=== PATIENT | female | born 1975 | race Caucasian/White ===

== ENCOUNTER 2018-06-26 08:35 | Emergency (ER) | payer BC ==
[~2018-06-26] VITALS: Ht 142.2 cm; Wt 117.0 kg
[2018-06-26 08:39] VITALS: BP 178/84
--- NOTE | 2018-06-26 08:57 | PHYS DOC ---
Past Medical History Past Medical History: No Pertinent History Past Surgical History: No Surgical History Alcohol Use: None Drug Use: None Adult General Chief Complaint Chief Complaint: SORE THROAT HPI HPI Patient is a 42 year old female with no significant medical history who presents to the ED today complaining of a dry cough, nasal congestion and sore throat for one week. Patient denies any fever. Patient is Hungarian-speaking and family is interpreting. Review of Systems Review of Systems Constitutional: Denies fever or chills [] Eyes: Denies change in visual acuity, redness, or eye pain [] HENT: Reports sore throat, and nasal congestion Respiratory: Reports cough, denies shortness of breath [] Cardiovascular: No additional information not addressed in HPI [] GI: Denies abdominal pain, nausea, vomiting, bloody stools or diarrhea [] : Denies dysuria or hematuria [] Musculoskeletal: Denies back pain or joint pain [] Integument: Denies rash or skin lesions [] Neurologic: Denies headache, focal weakness or sensory changes [] All other systems were reviewed and found to be within normal limits, except as documented in this note. Allergies Allergies Allergies Coded Allergies Type Severity Reaction Last Updated Verified No Known Drug Allergies 06/24/15 No Physical Exam Physical Exam Constitutional: Well developed, well nourished, no acute distress, non-toxic appearance. [] HENT: Normocephalic, atraumatic, bilateral external ears normal, oropharynx moist, no oral exudates, nose normal. [] posterior pharynx with mild erythema no exudate Eyes: PERRLA, EOMI, conjunctiva normal, no discharge. [] Neck: Normal range of motion, no tenderness, supple, no stridor. [] Cardiovascular:Heart rate regular rhythm, no murmur [] Lungs & Thorax: Bilateral breath sounds clear to auscultation [] Abdomen: Bowel sounds normal, soft, no tenderness, no masses, no pulsatile masses. [] Skin: Warm, dry, no erythema, no rash. [] Back: No tenderness, no CVA tenderness. [] Extremities: No tenderness, no cyanosis, no clubbing, ROM intact, no edema. [] Neurologic: Alert and oriented X 3, normal motor function, normal sensory function, no focal deficits noted. [] Psychologic: Affect normal, judgement normal, mood normal. [] Current Patient Data Vital Signs Vital Signs Date Time Temp Pulse Resp B/P (MAP) Pulse Ox O2 Delivery O2 Flow Rate FiO2 06/26/18 08:39 98.6 84 16 178/84 (115) 98 Room Air 98.6 EKG EKG [] Radiology/Procedures Radiology/Procedures []PROCEDURE: CHEST PA & LATERAL PA and lateral views of the chest. Comparison: None. Indication: DRY COUGH, SORE THROAT, PAIN ON RIGHT SIDE OF NECK Findings: Normal lung volume. No focal airspace disease. Normal pulmonary vasculature. No pleural effusion. No pneumothorax. The cardiomediastinal silhouette is normal in appearance. The great vessels are normal. No acute osseous abnormality. Impression: 1. No acute cardiopulmonary process. Electronically signed by: Naresh Cunningham MD (06/26/2018 9:22 AM) [facility] DICTATED and SIGNED BY: NARESH CUNNINGHAM MD DATE: 06/26/18 0922 Course & Med Decision Making Course & Med Decision Making Pertinent Labs and Imaging studies reviewed. (See chart for details) This is a 42-year-old female patient presenting to the ED today complaining of a sore throat, nasal congestion and a dry cough for 1 week. Chest x-ray interpreted by radiologist as negative for any acute findings. Chest x-ray interpreted by radiologist as negative for any acute findings, negative rapid strep. Treated for viral bronchitis and viral pharyngitis, discharged with instructions to follow-up with the PCP in 1-2 weeks. Patient is Hungarian-speaking, interpretation provided by family [place] Disclaimer Ellis Disclaimer This electronic medical record was generated, in whole or in part, using a voice recognition dictation system. Departure Departure Impression: Primary Impression: Acute viral pharyngitis Additional Impression: Acute viral bronchitis Disposition: 01 HOME, SELF-CARE Condition: STABLE Referrals: ASHLEY CARRERA DO (PCP) follow up in 1-2 weeks with your doctor Patient Instructions: Acute Bronchitis, Viral Pharyngitis Additional Instructions: You were evaluated in the emergency room and diagnosed with bronchitis and pharyngitis. We put you on medications, take them as prescribed. Follow-up with your doctor in 1-2 weeks. Scripts Albuterol Sulfate (VENTOLIN HFA INHALER) 18 Gm Hfa.aer.ad 2 PUFF INH Q4HRS for FOR ASTHMA, #1 INHALER 0 Refills Prov: FRANKO RICHARD APRN 06/26/18 Benzonatate (TESSALON PERLE) 100 Mg Capsule 1 CAP PO TID, #30 CAP Prov: FRANKO RICHARD APRN 06/26/18 Prednisone (PREDNISONE) 50 Mg Tablet 1 TAB PO DAILY, #5 TAB Prov: FRANKO RICHARD APRN 06/26/18 Problem Qualifiers FRANKO RICHARD APRN Jun 26, 2018 08:57
--- NOTE | 2018-06-26 09:25 | RAD ---
PA and lateral views of the chest. Comparison: None. Indication: DRY COUGH, SORE THROAT, PAIN ON RIGHT SIDE OF NECK Findings: Normal lung volume. No focal airspace disease. Normal pulmonary vasculature. No pleural effusion. No pneumothorax. The cardiomediastinal silhouette is normal in appearance. The great vessels are normal. No acute osseous abnormality. Impression: 1. No acute cardiopulmonary process. Electronically signed by: Naresh Cunningham MD (06/26/2018 9:22 AM) [facility]
[2018-06-26] MEDS ORDERED: BENZ100C PO (09:42)
[2018-06-26] MEDS ORDERED: VENTOLIN HFA18 GM INH (09:42)
[2018-06-26] MEDS ORDERED: PRED50TA PO (09:42)
== END 2018-06-26 10:12 | disposition home or self-care (01) ==
LOC: ER 08:35
DX: J02.8 Acute pharyngitis due to other specified organisms (principal); J20.8 Acute bronchitis due to other specified organisms; B97.89 Other viral agents as the cause of diseases classified elsewhere
CPT/HCPCS: 71046; 87070; 87880; 99284-25

== ENCOUNTER 2018-11-07 01:43 | Emergency (ER) | payer BC ==
[~2018-11-07] VITALS: Ht 142.2 cm; Wt 113.4 kg
[~2018-11-07 01:43] MED LIST: BENZ100C PO; NAPR-683 PO; PRED50TA PO; VENTOLIN HFA18 GM INH
[2018-11-07] MEDS ORDERED: LIDO:MAALOX 1:1 20 ML SINGLE DOSE. SWSW ONE (02:30)
[2018-11-07] MEDS ORDERED: FAMOTIDINE 20 MG TABLET. PO ONE (02:30)
[2018-11-07] MEDS ORDERED: ONDANSETRON ODT 4 MG TAB.RAPDIS. PO ONE (02:30)
[2018-11-07] MEDS ORDERED: MAG355OR11 PO (02:38)
[2018-11-07] MEDS ORDERED: ONDA4TAB7 PO (02:38)
[2018-11-07] MEDS ORDERED: FAMO-63 PO (02:38)
--- NOTE | 2018-11-07 02:39 | PHYS DOC ---
Past Medical History Past Medical History: Asthma, GERD Past Surgical History: Appendectomy, Other Additional Past Surgical Histo: Pt. poor historian, reports having gallbladder out, unsure of appendix Alcohol Use: None Drug Use: None Adult General Chief Complaint Chief Complaint: ABDOMINAL PAIN HPI HPI Patient is a 42 year old male with history of reflux disease who presents with epigastric pain rating to left chest starting this evening after eating spicy [place] food. Patient reports nausea, no vomiting. Pain is worse while supine and with palpation. Denies exertional. Similar episodes in the past treated with antacids recently given in the ED. However, the patient is not currently taking any antacids. Denies shortness of breath, bloody stools dark tarry stools. No history of peptic ulcer disease. No other acute symptoms or complaints. [] Review of Systems Review of Systems Review of symptoms as per history of present illness. All other review symptoms are negative All other systems were reviewed and found to be within normal limits, except as documented in this note. Current Medications Current Medications Current Medications Medications (Trade) Dose Ordered Sig/Marlo Start Time Stop Time Status Last Admin Dose Admin Famotidine (Pepcid) 20 mg 1X ONCE 11/07/18 02:30 11/07/18 02:31 11/07/18 02:16 20 MG Multi-Ingredient Mouthwash/Gargle (Gi Cocktail) 20 ml 1X ONCE 11/07/18 02:30 11/07/18 02:31 11/07/18 02:16 20 ML Ondansetron HCl (Zofran Odt) 4 mg 1X ONCE 11/07/18 02:30 11/07/18 02:31 11/07/18 02:16 4 MG Allergies Allergies Allergies Coded Allergies Type Severity Reaction Last Updated Verified No Known Drug Allergies 06/24/15 No Physical Exam Physical Exam Constitutional: Well developed, anxious, moderate distress secondary to pain.. [] HENT: Normocephalic, atraumatic, bilateral external ears normal, oropharynx moist, nose normal. [] Eyes: PERRLA, EOMI, conjunctiva normal, no discharge. [] Neck: Normal range of motion, no tenderness, supple, no stridor. [] Cardiovascular:Heart rate regular rhythm, no murmur [] Lungs & Thorax: Bilateral breath sounds clear to auscultation [] Abdomen: Bowel sounds normal, soft, epigastric pain, tenderness. [] Skin: Warm, dry, no erythema, no rash. [] Back: No tenderness, no CVA tenderness. [] Extremities: No tenderness, no cyanosis, no clubbing, ROM intact, no edema. [] Neurologic: Alert and oriented X 3, normal motor function, normal sensory function, no focal deficits noted. [] Psychologic: Affect normal, judgement normal, mood normal. [] Current Patient Data Vital Signs Vital Signs Date Time Temp Pulse Resp B/P (MAP) Pulse Ox O2 Delivery O2 Flow Rate FiO2 11/07/18 01:43 98.2 94 18 187/101 (129) 98 Room Air 98.2 EKG EKG [EKG: Normal sinus rhythm, no acute ST-T wave changes] Radiology/Procedures Radiology/Procedures [Chest x-ray: NAD] Course & Med Decision Making Course & Med Decision Making Pertinent Labs and Imaging studies reviewed. (See chart for details) [Symptoms fully resolved with GI cocktail Pepcid and Zofran. Recommend avoiding spicy foods, alcohol etc.., supportive care and close PCP follow up.] Dragon Disclaimer Dragon Disclaimer This electronic medical record was generated, in whole or in part, using a voice recognition dictation system. Departure Departure Impression: Primary Impression: GERD with esophagitis Disposition: HOME, SELF-CARE Condition: IMPROVED Referrals: ASHLEY CARRERA DO (PCP) Patient Instructions: Esophageal Spasm, Heartburn Additional Instructions: Please avoid space foods, alcohol and eating prior to bedtime. Take newly prescribed medications as directed and follow-up with your local PCP for reevaluation. Scripts Mag Hydrox/Aluminum Hyd/Simeth (Maalox Advanced Suspension) 355 Ml Oral.susp 355 ML PO Q8HRS PRN for HEARTBURN / GAS, #1 MISC Prov: ZULEIKA DUBOIS DO 11/07/18 Ondansetron Hcl (ZOFRAN) 4 Mg Tablet 1 TAB PO Q6HRS, #10 TAB 0 Refills Prov: ZULEIKA DUBOIS DO 11/07/18 Famotidine (PEPCID) 20 Mg Tablet 20 MG PO BID, #60 TAB Prov: ZULEIKA DUBOIS DO 11/07/18 ZULEIKA DUBOIS DO Nov 07, 2018 02:38
[2018-11-07 02:46] VITALS: BP 127/82
--- NOTE | 2018-11-07 07:00 | EKG ---
[facility] [address] [place] [address] Test Date: 2018-11-07 Test Time: 01:49:43 Pat Name: MIKE BELTRAN Department: Room: Gender: F Incident Analyst: : 1975 Requested By: ZULEIKA DUBOIS Order Number: [id number] Reading MD: Sunday Lopez MD Measurements Intervals [place] Rate: 93 P: 38 OR: 146 QRS: 30 QRSD: 86 T: 37 QT: 358 QTc: 453 Interpretive Statements SINUS RHYTHM Electronically Signed On 11-11-2018 9:51:53 CDT by Sunday Lopez MD
== END 2018-11-07 03:00 | disposition home or self-care (01) ==
LOC: ER 01:43
DX: K21.0 Gastro-esophageal reflux disease with esophagitis (principal); J45.909 Unspecified asthma, uncomplicated; Z90.89 Acquired absence of other organs
CPT/HCPCS: 93005; 99284; Q0162

== ENCOUNTER 2019-06-10 13:54 | Inpatient (IN) | payer BC ==
[~2019-06-10] VITALS: Ht 134.6 cm; Wt 113.0 kg
[~2019-06-10 13:54] MED LIST changes: +FAMO-63 PO; +MAG355OR11 PO; +ONDA4TAB7 PO
--- NOTE | 2019-06-10 14:17 | PHYS DOC ---
Past Medical History Past Medical History: Asthma, GERD Past Surgical History: , Other Additional Past Surgical Histo: Pt. poor historian, reports having gallbladder out, unsure of appendix Smoking Status: Never Smoker Alcohol Use: None Drug Use: None Adult General Chief Complaint Chief Complaint: COUGH HPI HPI Patient is a 43 year old female who presents with cough, fever, shortness of breath, body aches is been ongoing for 3 days. The patient ambulated into the ER and vital signs are stable on arrival. Denies additional symptoms. Denies sick contact. Denies being around any positive thorne test. Complete ROS were reviewed and found to be within normal limits, except as documented in the HPI Current Medications Current Medications Current Medications Medications (Trade) Dose Ordered Sig/Marlo Start Time Stop Time Status Last Admin Dose Admin Azithromycin 250 ml @ 250 mls/hr 1X ONCE 06/10/19 16:45 06/10/19 17:44 06/10/19 16:45 250 MLS/HR Ceftriaxone Sodium (Rocephin) 1 gm 1X ONCE 06/10/19 16:45 06/10/19 16:46 DC 06/10/19 16:45 1 GM Iohexol (Omnipaque 300 Mg/ml) 75 ml 1X ONCE 06/10/19 15:15 06/10/19 15:18 DC 06/10/19 16:30 75 ML Sodium Chloride 500 ml @ 500 mls/hr 1X ONCE 06/10/19 14:45 06/10/19 15:44 DC 06/10/19 15:30 500 MLS/HR Allergies Allergies Allergies Coded Allergies Type Severity Reaction Last Updated Verified No Known Drug Allergies 06/24/15 No Physical Exam Physical Exam Constitutional: Well developed, well nourished, no acute distress, non-toxic appearance. [] HENT: Normocephalic, atraumatic, bilateral external ears normal, oropharynx moist, no oral exudates, nose normal. [] Eyes: PERRLA, EOMI, conjunctiva normal, no discharge. [] Neck: Normal range of motion, no tenderness, supple, no stridor. [] Cardiovascular:Heart rate regular rhythm, no murmur [] Lungs & Thorax: Bilateral breath sounds clear to auscultation [] Neurologic: Alert and oriented X 3, normal motor function, normal sensory function, no focal deficits noted. [] Psychologic: Affect normal, judgement normal, mood normal. [] Current Patient Data Vital Signs Vital Signs Date Time Temp Pulse Resp B/P (MAP) Pulse Ox O2 Delivery O2 Flow Rate FiO2 06/10/19 14:04 100.5 110 18 116/75 (89) 93 Room Air 100.5 Lab Values Laboratory Tests Test 06/10/19 15:37 White Blood Count 3.9 x10^3/uL (4.0-11.0) L Red Blood Count 4.42 x10^6/uL (3.50-5.40) Hemoglobin 12.1 g/dL (12.0-15.5) Hematocrit 36.2 % (36.0-47.0) Mean Corpuscular Volume 82 fL (79-100) Mean Corpuscular Hemoglobin 28 pg (25-35) Mean Corpuscular Hemoglobin Concent 34 g/dL (31-37) Red Cell Distribution Width 15.0 % (11.5-14.5) H Platelet Count 202 x10^3/uL (140-400) Neutrophils (%) (Auto) 73 % (31-73) Lymphocytes (%) (Auto) 20 % (24-48) L Monocytes (%) (Auto) 6 % (0-9) Eosinophils (%) (Auto) 0 % (0-3) Basophils (%) (Auto) 1 % (0-3) Neutrophils # (Auto) 2.8 x10^3/uL (1.8-7.7) Lymphocytes # (Auto) 0.8 x10^3/uL (1.0-4.8) L Monocytes # (Auto) 0.2 x10^3/uL (0.0-1.1) Eosinophils # (Auto) 0.0 x10^3/uL (0.0-0.7) Basophils # (Auto) 0.0 x10^3/uL (0.0-0.2) Prothrombin Time 11.9 SEC (11.7-14.0) Prothrombin Time INR 0.9 (0.8-1.1) Activated Partial Thromboplast Time 27 SEC (24-38) Sodium Level 141 mmol/L (136-145) Potassium Level 3.3 mmol/L (3.5-5.1) L Chloride Level 103 mmol/L (98-107) Carbon Dioxide Level 28 mmol/L (21-32) Anion Gap 10 (6-14) Blood Urea Nitrogen 5 mg/dL (7-20) L Creatinine 0.6 mg/dL (0.6-1.0) Estimated GFR (Cockcroft-Gault) 108.1 BUN/Creatinine Ratio 8 (6-20) Glucose Level 113 mg/dL (70-99) H Lactic Acid Level 1.3 mmol/L (0.4-2.0) Calcium Level 8.1 mg/dL (8.5-10.1) L Total Bilirubin 0.2 mg/dL (0.2-1.0) Aspartate Amino Transferase (AST) 33 U/L (15-37) Alanine Aminotransferase (ALT) 46 U/L (14-59) Alkaline Phosphatase 114 U/L (46-116) Total Protein 7.0 g/dL (6.4-8.2) Albumin 2.9 g/dL (3.4-5.0) L Albumin/Globulin Ratio 0.7 (1.0-1.7) L Procalcitonin < 0.10 ng/mL (0.00-0.10) Laboratory Tests 06/10/19 15:37 Laboratory Tests 06/10/19 15:37 EKG EKG [] Radiology/Procedures Radiology/Procedures [facility] [address] [place] [address] IMAGING REPORT Signed PATIENT: MIKE BELTRAN ACCOUNT: [id number] : 1975 LOCATION: ER AGE: 43 SEX: F EXAM STATUS: REG ER ORD. PHYSICIAN: ALETA POSEY APRN REASON: abnormal chest x-ray, cough, shortness of breath, fever PROCEDURE: CT CHEST W/CONTRAST Exam: CT of chest with contrast INDICATION: Abnormal chest x-ray, cough, shortness of breath, fever TECHNIQUE: Sequential axial images through the chest obtained following the administration of 75 mL of Omni 300 IV contrast. Sagittal and coronal reformatted images were reconstructed from the axial data and reviewed. Comparisons: None FINDINGS: Visualized portions of the thyroid are unremarkable. No enlarged mediastinal lymph nodes are identified. Heart size is normal. No pericardial effusion. Thoracic aorta has a normal course and caliber. Pulmonary artery is not enlarged. Airways are patent. Patchy areas of consolidation and groundglass opacity are noted predominantly at the upper lungs bilaterally. No suspicious lung nodules. No pleural effusion or thickening. Visualized upper abdomen is unremarkable. No suspicious osseous lesions or acute fractures. IMPRESSION: Patchy bilateral airspace disease favored to be infectious or inflammatory in etiology. Correlate for atypical/viral causes. Exposure: One or more of the following in the visualized dose reduction techniques were utilized for this examination: 1. Automated exposure control 2. Adjustment of the MA and/or KV according to patient size 3. Use of iterative of reconstructive technique Electronically signed by: Lindsay Nunez MD (06/10/2019 4:38 PM) [id number] DICTATED and SIGNED BY: LINDSAY NUNEZ MD DATE: 06/10/19 2473 [][facility] [address] [place] [address] IMAGING REPORT Signed PATIENT: MIKE BELTRAN ACCOUNT: [id number] : 1975 LOCATION: ER AGE: 43 SEX: F EXAM STATUS: REG ER ORD. PHYSICIAN: ALETA POSEY APRN REASON: cough, fever PROCEDURE: PORTABLE CHEST 1V EXAM: PORTABLE CHEST 1V INDICATION: Cough and fever. TECHNIQUE: Single AP view COMPARISON: Chest x-ray of 09/16/2018 FINDINGS: The heart size is borderline enlarged. The great vessels appear unremarkable. There is no hilar or mediastinal mass. The lungs are hypoventilatory and show ill-defined bilateral patchy airspace opacities, new in the interval.. There is no pleural effusion or pneumothorax. There are no significant osseous abnormalities. IMPRESSION: New ill-defined bilateral patchy airspace opacities. Correlate for any evidence of pneumonia. Electronically signed by: Vernell Arzola MD (06/10/2019 2:37 PM) [id number] DICTATED and SIGNED BY: VERNELL ARZOLA MD DATE: 06/10/19 8961 Course & Med Decision Making Course & Med Decision Making Pertinent Labs and Imaging studies reviewed. (See chart for details) Patient has flulike symptoms in the community where thorne is widespread. Her has been sick at home. Will get chest x-ray on the patient. Chest x-ray showed bilateral pneumonia. Will obtain CT scan to see if she has glasslike opacities. CT scan showed glasslike opacities in the upper lobe. Discussed the case with Dr. Dinh from pulmonology. He agrees with the antibiotic choice of Rocephin and azithromycin. Does not recommend steroids at this time. He does want her tested for thorne. We will put order in for coronavirus testing. He recommends putting the patient in ICU. Discussed case with Dr. Crain who agrees to admission. Dragon Disclaimer Dragon Disclaimer This electronic medical record was generated, in whole or in part, using a voice recognition dictation system. Departure Departure Impression: Primary Impression: Suspected 2019 novel coronavirus infection Additional Impression: Pneumonia Disposition: 09 ADMITTED INPATIENT Admitting Physician: ANGELITO Condition: GUARDED Referrals: UNKNOWN PCP NAME (PCP) Problem Qualifiers Additional Impression: Pneumonia Pneumonia type: due to unspecified organism Laterality: bilateral Lung location: unspecified part of lung Qualified Codes: J18.9 - Pneumonia, u nspecified organism ALETA POSEY APRN Jun 10, 2019 14:17
--- NOTE | 2019-06-10 14:40 | RAD ---
EXAM: PORTABLE CHEST 1V INDICATION: Cough and fever. TECHNIQUE: Single AP view COMPARISON: Chest x-ray of 09/16/2018 FINDINGS: The heart size is borderline enlarged. The great vessels appear unremarkable. There is no hilar or mediastinal mass. The lungs are hypoventilatory and show ill-defined bilateral patchy airspace opacities, new in the interval.. There is no pleural effusion or pneumothorax. There are no significant osseous abnormalities. IMPRESSION: New ill-defined bilateral patchy airspace opacities. Correlate for any evidence of pneumonia. Electronically signed by: Justin Arzola MD (06/10/2019 2:37 PM) [id number]
[2019-06-10] MEDS ORDERED: IV NORMAL SALINE 500ML BAG 500 ML IV ONE (14:45)
[2019-06-10] MEDS ORDERED: IOHEXOL 300 MG/ML 100ML VIAL. IV ONE (15:15)
[2019-06-10 15:45] LABS: BASO % 1 % (0-3); EOS % 0 % (0-3); HEMATOCRIT 36.2 % (36.0-47.0); HEMOGLOBIN 12.1 g/dL (12.0-15.5); LYMPH # 0.8 x10^3/uL (1.0-4.8); LYMPH % 20 % (24-48); MEAN CORPUSCULAR HEMOGLOBIN 28 pg (25-35); MEAN CORPUSCULAR HGB CONC 34 g/dL (31-37); MEAN CORPUSCULAR VOLUME 82 fL (79-100); MONO # 0.2 x10^3/uL (0.0-1.1); MONO % 6 % (0-9); NEUT # 2.8 x10^3/uL (1.8-7.7); NEUT % 73 % (31-73); PLATELET COUNT 202 x10^3/uL (140-400); RED BLOOD COUNT 4.42 x10^6/uL (3.50-5.40); WHITE BLOOD COUNT 3.9 x10^3/uL (4.0-11.0)
[2019-06-10 15:54] LABS: PROTHROMBIN TIME PATIENT 11.9 SEC (11.7-14.0)
[2019-06-10 16:00] LABS: CALCIUM 8.1 mg/dL (8.5-10.1); CREATININE 0.6 mg/dL (0.6-1.0); GFR 108.1; POTASSIUM 3.3 mmol/L (3.5-5.1)
[2019-06-10 16:06] LABS: ALBUMIN 2.9 g/dL (3.4-5.0); ALBUMIN/GLOBULIN RATIO 0.7 (1.0-1.7); TOTAL BILIRUBIN 0.2 mg/dL (0.2-1.0)
--- NOTE | 2019-06-10 16:41 | RAD ---
Exam: CT of chest with contrast INDICATION: Abnormal chest x-ray, cough, shortness of breath, fever TECHNIQUE: Sequential axial images through the chest obtained following the administration of 75 mL of Omni 300 IV contrast. Sagittal and coronal reformatted images were reconstructed from the axial data and reviewed. Comparisons: None FINDINGS: Visualized portions of the thyroid are unremarkable. No enlarged mediastinal lymph nodes are identified. Heart size is normal. No pericardial effusion. Thoracic aorta has a normal course and caliber. Pulmonary artery is not enlarged. Airways are patent. Patchy areas of consolidation and groundglass opacity are noted predominantly at the upper lungs bilaterally. No suspicious lung nodules. No pleural effusion or thickening. Visualized upper abdomen is unremarkable. No suspicious osseous lesions or acute fractures. IMPRESSION: Patchy bilateral airspace disease favored to be infectious or inflammatory in etiology. Correlate for atypical/viral causes. Exposure: One or more of the following in the visualized dose reduction techniques were utilized for this examination: 1. Automated exposure control 2. Adjustment of the MA and/or KV according to patient size 3. Use of iterative of reconstructive technique Electronically signed by: Lindsay Ziegler MD (06/10/2019 4:38 PM) [id number]
[2019-06-10] MEDS ORDERED: cefTRIAXone IV Push 1 GM VIAL. IVP ONE (16:45)
[2019-06-10] MEDS ORDERED: AZITHRMYCN 500MG IVPB FOR OMNI 250 ML IV ONE (16:45)
--- NOTE | 2019-06-10 17:13 | PDOC1 ---
History and Physical Date of Admission Date of Admission DATE: 06/10/19 TIME: 17:11 Identification/Chief Complaint Chief Complaint SEEN IN ER WITH ABNORMAL CT OF CHEST 43 year old female who presents with cough, fever, shortness of breath, body aches is been ongoing for 3 days. ambulated into the ER and vital signs are stable on arrival. Denies additional symptoms. Denies sick contact. Denies being around any positive thorne test. Past Medical History Past Medical History Past Medical History Past Medical History Past Medical History: Asthma, GERD Past Surgical History: , Other Additional Past Surgical Histo: Pt. poor historian, reports having gallbladder out, unsure of appendix Smoking Status: Never Smoker Alcohol Use: None Drug Use: None fhx obesity Cardiovascular: HTN Musculoskeletal: Osteoarthritis Dermatology: No pertinent hx Family History Family History: High Cholestrol, Hypertension Social History Smoke: No ALCOHOL: none Drugs: None Current Problem List Problem List Problems Medical Problems: (1) Acute viral syndrome Status: Acute (2) ARDS (adult respiratory distress syndrome) Status: Acute (3) Suspected 2019 novel coronavirus infection Status: Acute Current Medications Current Medications Current Medications Sodium Chloride 500 ml @ 500 mls/hr 1X ONCE IV Last administered on 06/10/19at 15:30; Start 06/10/19 at 14:45; Stop 06/10/19 at 15:44; Status DC Iohexol (Omnipaque 300 Mg/ml) 75 ml 1X ONCE IV Last administered on 06/10/19at 16:30; Start 06/10/19 at 15:15; Stop 06/10/19 at 15:18; Status DC Azithromycin 250 ml @ 250 mls/hr 1X ONCE IV Last administered on 06/10/19at 16:45; Start 06/10/19 at 16:45; Stop 06/10/19 at 17:44 Ceftriaxone Sodium (Rocephin) 1 gm 1X ONCE IVP Last administered on 06/10/19at 16:45; Start 06/10/19 at 16:45; Stop 06/10/19 at 16:46; Status DC Active Scripts Active Maalox Advanced Suspension (Mag Hydrox/Aluminum Hyd/Simeth) 355 Ml Oral.susp 355 Ml PO Q8HRS PRN Zofran (Ondansetron Hcl) 4 Mg Tablet 1 Tab PO Q6HRS Pepcid (Famotidine) 20 Mg Tablet 20 Mg PO BID Naprosyn (Naproxen) 500 Mg Tablet 500 Mg PO BID Ventolin Hfa Inhaler (Albuterol Sulfate) 18 Gm Hfa.aer.ad 2 Puff INH Q4HRS Tessalon Perle (Benzonatate) 100 Mg Capsule 1 Cap PO TID Prednisone 50 Mg Tablet 1 Tab PO DAILY Reported No Known Medications Prior To Admisstion (Info) Each 1 Each [facility] Allergies Allergies: Coded Allergies: No Known Drug Allergies (Unverified , 06/24/15) ROS Review of System Physical Exam Physical Exam Constitutional: Well developed, well nourished, no acute distress, non-toxic appearance. [] HENT: Normocephalic, atraumatic, bilateral external ears normal, oropharynx moist, no oral exudates, nose normal. [] Eyes: PERRLA, EOMI, conjunctiva normal, no discharge. [] Neck: Normal range of motion, no tenderness, supple, no stridor. [] Cardiovascular:Heart rate regular rhythm, no murmur [] Lungs & Thorax: Bilateral breath sounds clear to auscultation [] Neurologic: Alert and oriented X 3, normal motor function, normal sensory function, no focal deficits noted. [] Psychologic: Affect normal, judgment normal, mood normal. [] Respiratory: YES: Cough, Shortness of breath, SOB with excertion Gastrointestinal: No Nausea, No Vomiting, No Abdominal Pain, No Diarrhea, No Constipation, No Melena, No Hematochezia, No Other Musculoskeletal: Yes Joint Stiffness Neurological: Yes Gait Disturbance Vitals Vitals Vital Signs Date Time Temp Pulse Resp B/P (MAP) Pulse Ox O2 Delivery O2 Flow Rate FiO2 06/10/19 14:04 100.5 110 18 116/75 (89) 93 Room Air 100.5 Labs Labs Laboratory Tests Test 06/10/19 15:37 White Blood Count 3.9 x10^3/uL (4.0-11.0) Red Blood Count 4.42 x10^6/uL (3.50-5.40) Hemoglobin 12.1 g/dL (12.0-15.5) Hematocrit 36.2 % (36.0-47.0) Mean Corpuscular Volume 82 fL (79-100) Mean Corpuscular Hemoglobin 28 pg (25-35) Mean Corpuscular Hemoglobin Concent 34 g/dL (31-37) Red Cell Distribution Width 15.0 % (11.5-14.5) Platelet Count 202 x10^3/uL (140-400) Neutrophils (%) (Auto) 73 % (31-73) Lymphocytes (%) (Auto) 20 % (24-48) Monocytes (%) (Auto) 6 % (0-9) Eosinophils (%) (Auto) 0 % (0-3) Basophils (%) (Auto) 1 % (0-3) Neutrophils # (Auto) 2.8 x10^3/uL (1.8-7.7) Lymphocytes # (Auto) 0.8 x10^3/uL (1.0-4.8) Monocytes # (Auto) 0.2 x10^3/uL (0.0-1.1) Eosinophils # (Auto) 0.0 x10^3/uL (0.0-0.7) Basophils # (Auto) 0.0 x10^3/uL (0.0-0.2) Prothrombin Time 11.9 SEC (11.7-14.0) Prothromb Time International Ratio 0.9 (0.8-1.1) Activated Partial Thromboplast Time 27 SEC (24-38) Sodium Level 141 mmol/L (136-145) Potassium Level 3.3 mmol/L (3.5-5.1) Chloride Level 103 mmol/L (98-107) Carbon Dioxide Level 28 mmol/L (21-32) Anion Gap 10 (6-14) Blood Urea Nitrogen 5 mg/dL (7-20) Creatinine 0.6 mg/dL (0.6-1.0) Estimated GFR (Cockcroft-Gault) 108.1 BUN/Creatinine Ratio 8 (6-20) Glucose Level 113 mg/dL (70-99) Lactic Acid Level 1.3 mmol/L (0.4-2.0) Calcium Level 8.1 mg/dL (8.5-10.1) Total Bilirubin 0.2 mg/dL (0.2-1.0) Aspartate Amino Transf (AST/SGOT) 33 U/L (15-37) Alanine Aminotransferase (ALT/SGPT) 46 U/L (14-59) Alkaline Phosphatase 114 U/L (46-116) Total Protein 7.0 g/dL (6.4-8.2) Albumin 2.9 g/dL (3.4-5.0) Albumin/Globulin Ratio 0.7 (1.0-1.7) Procalcitonin < 0.10 ng/mL (0.00-0.10) Laboratory Tests Test 06/10/19 15:37 White Blood Count 3.9 x10^3/uL (4.0-11.0) Red Blood Count 4.42 x10^6/uL (3.50-5.40) Hemoglobin 12.1 g/dL (12.0-15.5) Hematocrit 36.2 % (36.0-47.0) Mean Corpuscular Volume 82 fL (79-100) Mean Corpuscular Hemoglobin 28 pg (25-35) Mean Corpuscular Hemoglobin Concent 34 g/dL (31-37) Red Cell Distribution Width 15.0 % (11.5-14.5) Platelet Count 202 x10^3/uL (140-400) Neutrophils (%) (Auto) 73 % (31-73) Lymphocytes (%) (Auto) 20 % (24-48) Monocytes (%) (Auto) 6 % (0-9) Eosinophils (%) (Auto) 0 % (0-3) Basophils (%) (Auto) 1 % (0-3) Neutrophils # (Auto) 2.8 x10^3/uL (1.8-7.7) Lymphocytes # (Auto) 0.8 x10^3/uL (1.0-4.8) Monocytes # (Auto) 0.2 x10^3/uL (0.0-1.1) Eosinophils # (Auto) 0.0 x10^3/uL (0.0-0.7) Basophils # (Auto) 0.0 x10^3/uL (0.0-0.2) Prothrombin Time 11.9 SEC (11.7-14.0) Prothromb Time International Ratio 0.9 (0.8-1.1) Activated Partial Thromboplast Time 27 SEC (24-38) Sodium Level 141 mmol/L (136-145) Potassium Level 3.3 mmol/L (3.5-5.1) Chloride Level 103 mmol/L (98-107) Carbon Dioxide Level 28 mmol/L (21-32) Anion Gap 10 (6-14) Blood Urea Nitrogen 5 mg/dL (7-20) Creatinine 0.6 mg/dL (0.6-1.0) Estimated GFR (Cockcroft-Gault) 108.1 BUN/Creatinine Ratio 8 (6-20) Glucose Level 113 mg/dL (70-99) Lactic Acid Level 1.3 mmol/L (0.4-2.0) Calcium Level 8.1 mg/dL (8.5-10.1) Total Bilirubin 0.2 mg/dL (0.2-1.0) Aspartate Amino Transf (AST/SGOT) 33 U/L (15-37) Alanine Aminotransferase (ALT/SGPT) 46 U/L (14-59) Alkaline Phosphatase 114 U/L (46-116) Total Protein 7.0 g/dL (6.4-8.2) Albumin 2.9 g/dL (3.4-5.0) Albumin/Globulin Ratio 0.7 (1.0-1.7) Procalcitonin < 0.10 ng/mL (0.00-0.10) Images Images EXAM: PORTABLE CHEST 1V INDICATION: Cough and fever. TECHNIQUE: Single AP view COMPARISON: Chest x-ray of 09/16/2018 FINDINGS: The heart size is borderline enlarged. The great vessels appear unremarkable. There is no hilar or mediastinal mass. The lungs are hypoventilatory and show ill-defined bilateral patchy airspace opacities, new in the interval.. There is no pleural effusion or pneumothorax. There are no significant osseous abnormalities. IMPRESSION: New ill-defined bilateral patchy airspace opacities. Correlate for any evidence of pneumonia. Electronically signed by: Vernell Arzola MD (06/10/2019 2:37 PM) [id number] DICTATED and SIGNED BY: VERNELL ARZOLA MD PATIENT: MIKE BELTRAN ACCOUNT: [id number] : 1975 LOCATION: ER AGE: 43 SEX: F EXAM STATUS: REG ER ORD. PHYSICIAN: ALETA POSEY APRN REASON: abnormal chest x-ray, cough, shortness of breath, fever PROCEDURE: CT CHEST W/CONTRAST Exam: CT of chest with contrast INDICATION: Abnormal chest x-ray, cough, shortness of breath, fever TECHNIQUE: Sequential axial images through the chest obtained following the administration of 75 mL of Omni 300 IV contrast. Sagittal and coronal reformatted images were reconstructed from the axial data and reviewed. Comparisons: None FINDINGS: Visualized portions of the thyroid are unremarkable. No enlarged mediastinal lymph nodes are identified. Heart size is normal. No pericardial effusion. Thoracic aorta has a normal course and caliber. Pulmonary artery is not enlarged. Airways are patent. Patchy areas of consolidation and groundglass opacity are noted predominantly at the upper lungs bilaterally. No suspicious lung nodules. No pleural effusion or thickening. Visualized upper abdomen is unremarkable. No suspicious osseous lesions or acute fractures. IMPRESSION: Patchy bilateral airspace disease favored to be infectious or inflammatory in etiology. Correlate for atypical/viral causes. Exposure: One or more of the following in the visualized dose reduction techniques were utilized for this examination: 1. Automated exposure control 2. Adjustment of the MA and/or KV according to patient size 3. Use of iterative of reconstructive technique Electronically signed by: Lindsay Ziegler MD (06/10/2019 4:38 PM) [id number] VTE Prophylaxis Ordered VTE Prophylaxis Devices: Yes VTE Pharmacological Prophylaxi: Yes Assessment/Plan Assessment/Plan IMPRESSION: ACUTE COUGH AND FEVER Patchy bilateral airspace disease C/W PNEUMONIA favored to be infectious or inflammatory in etiology.// atypical/viral causes.vs covid-[address] CHEST extreme morbid obesity HYPOKALEMIA SUSPECT OBESITY, -HYPOVENTILATION SYNDROME SIRS PLAN ADMIT ICU UNIT COVID-19 AG LEGIONELLA AG URINE CONSULT PULM MED EMPERIC IV ANTIBIOTICS, VANC, ZOSYN DVT PROPHYLAXIS RESP ISOLATION, neg airflow room o2 support REPLACE K HS OXIMETRY STUDY 34 MIN CC TIME SMITHA HOWARD MD Jun 10, 2019 17:13
[2019-06-10] MEDS ORDERED: ONDANSETRON PF 4 MG/2 ML VIAL. IV PRN ×2 (17:30→18:00)
[2019-06-10] MEDS ORDERED: ACETAMINOPHEN 325 MG TABLET. PO PRN (17:30)
[2019-06-10] MEDS ORDERED: 0.9 % SODIUM CHLORIDE 10 ML DISP.SYRIN. IV PRN (18:00)
[2019-06-10] MEDS ORDERED: cloNIDine HCL 0.1 MG TABLET PO PRN (18:00)
[2019-06-10] MEDS ORDERED: DOCUSATE SODIUM 100 MG CAPSULE. PO PRN (18:00)
[2019-06-10] MEDS ORDERED: guaiFENesin ORAL 200 MG/10 ML LIQUID. PO PRN (18:00)
[2019-06-10] MEDS ORDERED: MAG HYDROX/ALUMINUM HYD/SIMETH 30 ML ORAL.SUSP PO PRN ×2 (18:00→20:45)
[2019-06-10] MEDS ORDERED: POTASSIUM CHLORIDE 20 MEQ TABLET.ER. PO ONE (18:00)
[2019-06-10] MEDS ORDERED: VANCOMYCIN 2 GM in IV NORMAL SALINE 500ML BAG 500 ML IV ONE (18:15)
[2019-06-10 18:30] VITALS: BP 159/78
[2019-06-10 19:00] VITALS: BP 156/86
[2019-06-10] MEDS: PIPERACILLIN/TAZOBACTAM 3.375 GM in IV NORMAL SALINE 50ML 50 ML IV SCH (19:00)
[2019-06-10] MEDS: IV NORMAL SALINE 1000ML BAG 1,000 ML IV SCH (19:21)
[2019-06-10 20:00] VITALS: BP 160/98
[2019-06-10] MEDS: VANCOMYCIN PER PHARMACY MC PRN (20:20)
--- NOTE | 2019-06-10 20:20 | NUR ---
Pharmacy Vancomycin Dosing Note S:Consulted to monitor and dose vancomycin started 06/10/19. O:MIKE BELTRAN is a 43 year old F with pneumonia, suspected COVID-19. Height: 4 feet, 5 inches Weight: 113.6 kg Dosing Weight: Actual Other Antibiotics: ZOSYN 3.375G IV Q6HRS LABS: Last BUN: 5 Last Creatinine: 0.6 Creatinine Clearance: > 100 mL/min Last WBC: 3.9 Tmax (past 24 hours): 100.5 Microbiology: BLOOD AND URINE CX PENDING A: Patient requires vancomycin for treatment of pneumonia, goal trough 15-20 mcg/ml. Her SCr is 0.6 with an eCrCl > 100. Initiate the following: P: 1. Initiate Vancomycin 200 mg IV x 1 dose, then 1500 mg IV q8h 2. Follow up Trough level on 06/11/19 at 1930 3. Pharmacy will continue to monitor, follow and adjust therapy as needed. GAVIN STERLING [facility], 06/10/192019
[2019-06-10] MEDS ORDERED: ONDANSETRON ODT 4 MG TAB.RAPDIS. PO PRN (20:45)
[2019-06-10 21:00] VITALS: BP 136/74
[2019-06-10] MEDS: FAMOTIDINE 20 MG TABLET. PO SCH (21:25)
[2019-06-10] MEDS: BENZONATATE 100 MG CAPSULE. PO SCH (21:26)
[2019-06-10] MEDS: HEPARIN for SUB-Q USE 5,000 UNIT/ML VIAL. SQ SCH (21:28)
[2019-06-10] MEDS: IPRATRPIUM/ALBUTEROL 0.5/2.5MG 3 ML NEBU. NEB SCH (21:48)
[2019-06-10 22:00] VITALS: BP 132/67
[2019-06-10 23:00] VITALS: BP 117/76
[2019-06-11] VITALS (22 sets, daily range): BP systolic 111–159; BP diastolic 68–87
[2019-06-11] MEDS ORDERED: NON FORMULARY ITEM (Albuterol Sulfate (Ventolin Hfa Inhaler) 2 PUFF) INH SCH
[2019-06-11] MEDS: PIPERACILLIN/TAZOBACTAM 3.375 GM in IV NORMAL SALINE 50ML 50 ML IV SCH ×4 (00:29→17:56)
[2019-06-11] MEDS: IV NORMAL SALINE 1000ML BAG 1,000 ML IV SCH ×3 (01:38→17:57)
[2019-06-11] MEDS: VANCOMYCIN 1.5 GM in IV NORMAL SALINE 500ML BAG 500 ML IV SCH ×2 (03:45→11:34)
[2019-06-11] MEDS: IPRATRPIUM/ALBUTEROL 0.5/2.5MG 3 ML NEBU. NEB SCH ×8 (04:00→23:34)
[2019-06-11 05:37] LABS: BASO % 0 % (0-3); EOS % 0 % (0-3); HEMATOCRIT 32.6 % (36.0-47.0); HEMOGLOBIN 10.7 g/dL (12.0-15.5); LYMPH # 0.6 x10^3/uL (1.0-4.8); LYMPH % 16 % (24-48); MEAN CORPUSCULAR HEMOGLOBIN 27 pg (25-35); MEAN CORPUSCULAR HGB CONC 33 g/dL (31-37); MEAN CORPUSCULAR VOLUME 83 fL (79-100); MONO # 0.3 x10^3/uL (0.0-1.1); MONO % 6 % (0-9); NEUT # 3.2 x10^3/uL (1.8-7.7); NEUT % 78 % (31-73); PLATELET COUNT 189 x10^3/uL (140-400); RED BLOOD COUNT 3.93 x10^6/uL (3.50-5.40); RED CELL DISTRIBUTION WIDTH 15.2 % (11.5-14.5); WHITE BLOOD COUNT 4.1 x10^3/uL (4.0-11.0)
[2019-06-11] MEDS: HEPARIN for SUB-Q USE 5,000 UNIT/ML VIAL. SQ SCH ×3 (05:43→21:46)
[2019-06-11 05:56] LABS: ALBUMIN 2.6 g/dL (3.4-5.0); ALBUMIN/GLOBULIN RATIO 0.7 (1.0-1.7); CALCIUM 7.6 mg/dL (8.5-10.1); CREATININE 0.5 mg/dL (0.6-1.0); GFR 133.4; POTASSIUM 3.4 mmol/L (3.5-5.1); TOTAL BILIRUBIN 0.4 mg/dL (0.2-1.0); TOTAL PROTEIN 6.2 g/dL (6.4-8.2)
[2019-06-11 07:49] LABS: MYCOPLASMA PATIENT POSITIVE (NEGATIVE)
[2019-06-11] MEDS: FAMOTIDINE 20 MG TABLET. PO SCH ×2 (08:46→21:42)
[2019-06-11] MEDS: BENZONATATE 100 MG CAPSULE. PO SCH ×3 (08:47→21:42)
[2019-06-11] MEDS: POTASSIUM CHLORIDE 20 MEQ TABLET.ER. PO SCH (08:47)
[2019-06-11 09:33] LABS: INFLUENZA A PATIENT NEGATIVE (NEGATIVE); INFLUENZA B PATIENT NEGATIVE (NEGATIVE)
--- NOTE | 2019-06-11 09:49 | CONS ---
DATE OF CONSULTATION: 06/11/2019 REASON FOR CONSULTATION: I was asked to see this 43-year-old lady for acute respiratory failure, pneumonia, and abnormal CT of the chest. HISTORY OF PRESENT ILLNESS: She does not speak much Faroese. She is a poor historian. She has been sick with cough, shortness of breath, fever, and body ache for the past 5 days. She ambulated to ER. She denies sick contact. She denies exposure to coronavirus or traveling. PAST MEDICAL HISTORY: Asthma and gastroesophageal reflux disease. SOCIAL HISTORY: She does not smoke. FAMILY HISTORY: Hypertension per chart. ALLERGIES: No known drug allergies. MEDICATIONS: Vancomycin, heparin subQ, Pepcid, DuoNeb, and Zosyn. REVIEW OF SYSTEMS: As mentioned as above. She has not had a sleep study. Other systems are otherwise negative. PHYSICAL EXAMINATION: GENERAL: This is an obese lady. VITAL SIGNS: Her O2 saturation is 95%, respiratory rate 17, heart rate 88, blood pressure 120/72, temperature 99.3, and maximum temperature 100.5. HEENT: Normocephalic, atraumatic. Pupils equal, round, and reactive to light. Nose is clear. Throat: There is shallow oropharynx. NECK: There is no JVD, lymphadenopathy, or thyromegaly. CARDIOVASCULAR: Regular rate and rhythm. PMI is nondisplaced. CHEST: Inspection is normal. LUNGS: There are bibasilar crackles, dullness at the bases. ABDOMEN: Soft and obese. Bowel sounds are good. There is no mass. EXTREMITIES: There is no edema. LYMPHATICS: There is no lymphadenopathy. NEUROLOGIC: Alert and oriented. LABORATORY DATA: I reviewed the following lab data. COVID-19 is pending. Sodium 142, potassium 3.4, chloride 106, CO2 of 26, BUN 3, creatinine 0.5, and glucose 110. Procalcitonin less than 0.1. Mycoplasma serology positive. WBC 3.9, hemoglobin 12.1, and platelet 202. Liver function tests normal. CT of the chest shows patchy bilateral airspace disease, favored to be infectious or inflammatory, correlate for atypical or viral causes. IMPRESSION: 1. Acute respiratory failure due to pneumonia and asthma. 2. Abnormal CT of the chest. 3. Pneumonia. 4. Coronavirus disease 2019 suspect. 5. Mycoplasma serology positive. 6. Obesity, probable obstructive sleep apnea-hypopnea syndrome. 7. Hypokalemia. 8. Fever/febrile illness. 9. Asthma. PLAN AND RECOMMENDATIONS: 1. Titrate FiO2 to keep O2 saturation 92%. 2. Bronchodilator. 3. I agree with antibiotic. I will add azithromycin. 4. I do recommend ID consultation. 5. Nasal swab for influenza A and B. fu covid19 results. 6. Pepcid for stress ulcer prophylaxis. 7. Heparin for DVT prophylaxis. 8. She would require a sleep study as an outpatient. Thank you very much for allowing me to participate in care of this very nice lady. The findings and recommendations were discussed with RN and RT. JARRETT BARBOZA M.D. : NADIR/vamsi JOB#: [id number] / [id number]
--- NOTE | 2019-06-11 09:58 | PDOC ---
PROGRESS NOTES Chief Complaint Chief Complaint A/P: Cough and fever Patchy bilateral airspace disease C/W PNEUMONIA favored to be infectious or inflammatory in etiology. atypical/viral causes.vs covid-[address] CHEST extreme morbid obesity Hypokalemia Possible OHS SIRS Acute hypoxic respiratory failure due to pneumonia and asthma. Abnormal CT of the chest. Pneumonia - Myoplasma serology positive Coronavirus disease 2019 suspected Asthma. Plan COVID-19 AG LEGIONELLA AG URINE CONSULT PULM AND ID EMPIRIC IV ANTIBIOTICS, VANC, ZOSYN DVT PROPHYLAXIS RESP ISOLATION, neg airflow room o2 support REPLACE K HS OXIMETRY STUDY History of Present Illness History of Present Illness Ms Daley is a 43 yo F who presents with cough, fever, shortness of breath, body aches is been ongoing for 3 days. Denies sick contact. Denies being around any positive thorne test. Admitted to ICU hypoxic. Feeling about the same, awaiting test on COVID. No CP. Doxycycline added per ID. Vitals Vitals Vital Signs Date Time Temp Pulse Resp B/P (MAP) Pulse Ox O2 Delivery O2 Flow Rate FiO2 06/11/19 09:00 99.4 112 17 130/68 (88) 94 Room Air 99.4 Labs LABS Laboratory Tests Test 06/10/19 15:31 06/10/19 15:37 06/11/19 05:00 06/11/19 09:00 Mycoplasma Serology (LAB) Positive (NEGATIVE) White Blood Count 3.9 x10^3/uL (4.0-11.0) 4.1 x10^3/uL (4.0-11.0) Red Blood Count 4.42 x10^6/uL (3.50-5.40) 3.93 x10^6/uL (3.50-5.40) Hemoglobin 12.1 g/dL (12.0-15.5) 10.7 g/dL (12.0-15.5) Hematocrit 36.2 % (36.0-47.0) 32.6 % (36.0-47.0) Mean Corpuscular Volume 82 fL (79-100) 83 fL (79-100) Mean Corpuscular Hemoglobin 28 pg (25-35) 27 pg (25-35) Mean Corpuscular Hemoglobin Concent 34 g/dL (31-37) 33 g/dL (31-37) Red Cell Distribution Width 15.0 % (11.5-14.5) 15.2 % (11.5-14.5) Platelet Count 202 x10^3/uL (140-400) 189 x10^3/uL (140-400) Neutrophils (%) (Auto) 73 % (31-73) 78 % (31-73) Lymphocytes (%) (Auto) 20 % (24-48) 16 % (24-48) Monocytes (%) (Auto) 6 % (0-9) 6 % (0-9) Eosinophils (%) (Auto) 0 % (0-3) 0 % (0-3) Basophils (%) (Auto) 1 % (0-3) 0 % (0-3) Neutrophils # (Auto) 2.8 x10^3/uL (1.8-7.7) 3.2 x10^3/uL (1.8-7.7) Lymphocytes # (Auto) 0.8 x10^3/uL (1.0-4.8) 0.6 x10^3/uL (1.0-4.8) Monocytes # (Auto) 0.2 x10^3/uL (0.0-1.1) 0.3 x10^3/uL (0.0-1.1) Eosinophils # (Auto) 0.0 x10^3/uL (0.0-0.7) 0.0 x10^3/uL (0.0-0.7) Basophils # (Auto) 0.0 x10^3/uL (0.0-0.2) 0.0 x10^3/uL (0.0-0.2) Prothrombin Time 11.9 SEC (11.7-14.0) Prothromb Time International Ratio 0.9 (0.8-1.1) Activated Partial Thromboplast Time 27 SEC (24-38) Sodium Level 141 mmol/L (136-145) 142 mmol/L (136-145) Potassium Level 3.3 mmol/L (3.5-5.1) 3.4 mmol/L (3.5-5.1) Chloride Level 103 mmol/L (98-107) 106 mmol/L (98-107) Carbon Dioxide Level 28 mmol/L (21-32) 26 mmol/L (21-32) Anion Gap 10 (6-14) 10 (6-14) Blood Urea Nitrogen 5 mg/dL (7-20) 3 mg/dL (7-20) Creatinine 0.6 mg/dL (0.6-1.0) 0.5 mg/dL (0.6-1.0) Estimated GFR (Cockcroft-Gault) 108.1 133.4 BUN/Creatinine Ratio 8 (6-20) 6 (6-20) Glucose Level 113 mg/dL (70-99) 110 mg/dL (70-99) Lactic Acid Level 1.3 mmol/L (0.4-2.0) Calcium Level 8.1 mg/dL (8.5-10.1) 7.6 mg/dL (8.5-10.1) Total Bilirubin 0.2 mg/dL (0.2-1.0) 0.4 mg/dL (0.2-1.0) Aspartate Amino Transf (AST/SGOT) 33 U/L (15-37) 29 U/L (15-37) Alanine Aminotransferase (ALT/SGPT) 46 U/L (14-59) 40 U/L (14-59) Alkaline Phosphatase 114 U/L (46-116) 98 U/L (46-116) Total Protein 7.0 g/dL (6.4-8.2) 6.2 g/dL (6.4-8.2) Albumin 2.9 g/dL (3.4-5.0) 2.6 g/dL (3.4-5.0) Albumin/Globulin Ratio 0.7 (1.0-1.7) 0.7 (1.0-1.7) Procalcitonin < 0.10 ng/mL (0.00-0.10) Influenza Type A Antigen Negative (NEGATIVE) Influenza Type B Antigen Negative (NEGATIVE) Assessment and Plan Assessmemt and Plan Problems Medical Problems: (1) Acute viral syndrome Status: Acute (2) ARDS (adult respiratory distress syndrome) Status: Acute (3) Pneumonia Status: Acute (4) Suspected 2019 novel coronavirus infection Status: Acute Comment Review of Relevant I have reviewed the following items brendan (where applicable) has been applied. Labs Laboratory Tests Test 06/10/19 15:31 06/10/19 15:37 06/11/19 05:00 06/11/19 09:00 Mycoplasma Serology (LAB) Positive (NEGATIVE) White Blood Count 3.9 x10^3/uL (4.0-11.0) 4.1 x10^3/uL (4.0-11.0) Red Blood Count 4.42 x10^6/uL (3.50-5.40) 3.93 x10^6/uL (3.50-5.40) Hemoglobin 12.1 g/dL (12.0-15.5) 10.7 g/dL (12.0-15.5) Hematocrit 36.2 % (36.0-47.0) 32.6 % (36.0-47.0) Mean Corpuscular Volume 82 fL (79-100) 83 fL (79-100) Mean Corpuscular Hemoglobin 28 pg (25-35) 27 pg (25-35) Mean Corpuscular Hemoglobin Concent 34 g/dL (31-37) 33 g/dL (31-37) Red Cell Distribution Width 15.0 % (11.5-14.5) 15.2 % (11.5-14.5) Platelet Count 202 x10^3/uL (140-400) 189 x10^3/uL (140-400) Neutrophils (%) (Auto) 73 % (31-73) 78 % (31-73) Lymphocytes (%) (Auto) 20 % (24-48) 16 % (24-48) Monocytes (%) (Auto) 6 % (0-9) 6 % (0-9) Eosinophils (%) (Auto) 0 % (0-3) 0 % (0-3) Basophils (%) (Auto) 1 % (0-3) 0 % (0-3) Neutrophils # (Auto) 2.8 x10^3/uL (1.8-7.7) 3.2 x10^3/uL (1.8-7.7) Lymphocytes # (Auto) 0.8 x10^3/uL (1.0-4.8) 0.6 x10^3/uL (1.0-4.8) Monocytes # (Auto) 0.2 x10^3/uL (0.0-1.1) 0.3 x10^3/uL (0.0-1.1) Eosinophils # (Auto) 0.0 x10^3/uL (0.0-0.7) 0.0 x10^3/uL (0.0-0.7) Basophils # (Auto) 0.0 x10^3/uL (0.0-0.2) 0.0 x10^3/uL (0.0-0.2) Prothrombin Time 11.9 SEC (11.7-14.0) Prothromb Time International Ratio 0.9 (0.8-1.1) Activated Partial Thromboplast Time 27 SEC (24-38) Sodium Level 141 mmol/L (136-145) 142 mmol/L (136-145) Potassium Level 3.3 mmol/L (3.5-5.1) 3.4 mmol/L (3.5-5.1) Chloride Level 103 mmol/L (98-107) 106 mmol/L (98-107) Carbon Dioxide Level 28 mmol/L (21-32) 26 mmol/L (21-32) Anion Gap 10 (6-14) 10 (6-14) Blood Urea Nitrogen 5 mg/dL (7-20) 3 mg/dL (7-20) Creatinine 0.6 mg/dL (0.6-1.0) 0.5 mg/dL (0.6-1.0) Estimated GFR (Cockcroft-Gault) 108.1 133.4 BUN/Creatinine Ratio 8 (6-20) 6 (6-20) Glucose Level 113 mg/dL (70-99) 110 mg/dL (70-99) Lactic Acid Level 1.3 mmol/L (0.4-2.0) Calcium Level 8.1 mg/dL (8.5-10.1) 7.6 mg/dL (8.5-10.1) Total Bilirubin 0.2 mg/dL (0.2-1.0) 0.4 mg/dL (0.2-1.0) Aspartate Amino Transf (AST/SGOT) 33 U/L (15-37) 29 U/L (15-37) Alanine Aminotransferase (ALT/SGPT) 46 U/L (14-59) 40 U/L (14-59) Alkaline Phosphatase 114 U/L (46-116) 98 U/L (46-116) Total Protein 7.0 g/dL (6.4-8.2) 6.2 g/dL (6.4-8.2) Albumin 2.9 g/dL (3.4-5.0) 2.6 g/dL (3.4-5.0) Albumin/Globulin Ratio 0.7 (1.0-1.7) 0.7 (1.0-1.7) Procalcitonin < 0.10 ng/mL (0.00-0.10) Influenza Type A Antigen Negative (NEGATIVE) Influenza Type B Antigen Negative (NEGATIVE) Laboratory Tests Test 06/10/19 15:31 06/10/19 15:37 06/11/19 05:00 06/11/19 09:00 Mycoplasma Serology (LAB) Positive (NEGATIVE) White Blood Count 3.9 x10^3/uL (4.0-11.0) 4.1 x10^3/uL (4.0-11.0) Red Blood Count 4.42 x10^6/uL (3.50-5.40) 3.93 x10^6/uL (3.50-5.40) Hemoglobin 12.1 g/dL (12.0-15.5) 10.7 g/dL (12.0-15.5) Hematocrit 36.2 % (36.0-47.0) 32.6 % (36.0-47.0) Mean Corpuscular Volume 82 fL (79-100) 83 fL (79-100) Mean Corpuscular Hemoglobin 28 pg (25-35) 27 pg (25-35) Mean Corpuscular Hemoglobin Concent 34 g/dL (31-37) 33 g/dL (31-37) Red Cell Distribution Width 15.0 % (11.5-14.5) 15.2 % (11.5-14.5) Platelet Count 202 x10^3/uL (140-400) 189 x10^3/uL (140-400) Neutrophils (%) (Auto) 73 % (31-73) 78 % (31-73) Lymphocytes (%) (Auto) 20 % (24-48) 16 % (24-48) Monocytes (%) (Auto) 6 % (0-9) 6 % (0-9) Eosinophils (%) (Auto) 0 % (0-3) 0 % (0-3) Basophils (%) (Auto) 1 % (0-3) 0 % (0-3) Neutrophils # (Auto) 2.8 x10^3/uL (1.8-7.7) 3.2 x10^3/uL (1.8-7.7) Lymphocytes # (Auto) 0.8 x10^3/uL (1.0-4.8) 0.6 x10^3/uL (1.0-4.8) Monocytes # (Auto) 0.2 x10^3/uL (0.0-1.1) 0.3 x10^3/uL (0.0-1.1) Eosinophils # (Auto) 0.0 x10^3/uL (0.0-0.7) 0.0 x10^3/uL (0.0-0.7) Basophils # (Auto) 0.0 x10^3/uL (0.0-0.2) 0.0 x10^3/uL (0.0-0.2) Prothrombin Time 11.9 SEC (11.7-14.0) Prothromb Time International Ratio 0.9 (0.8-1.1) Activated Partial Thromboplast Time 27 SEC (24-38) Sodium Level 141 mmol/L (136-145) 142 mmol/L (136-145) Potassium Level 3.3 mmol/L (3.5-5.1) 3.4 mmol/L (3.5-5.1) Chloride Level 103 mmol/L (98-107) 106 mmol/L (98-107) Carbon Dioxide Level 28 mmol/L (21-32) 26 mmol/L (21-32) Anion Gap 10 (6-14) 10 (6-14) Blood Urea Nitrogen 5 mg/dL (7-20) 3 mg/dL (7-20) Creatinine 0.6 mg/dL (0.6-1.0) 0.5 mg/dL (0.6-1.0) Estimated GFR (Cockcroft-Gault) 108.1 133.4 BUN/Creatinine Ratio 8 (6-20) 6 (6-20) Glucose Level 113 mg/dL (70-99) 110 mg/dL (70-99) Lactic Acid Level 1.3 mmol/L (0.4-2.0) Calcium Level 8.1 mg/dL (8.5-10.1) 7.6 mg/dL (8.5-10.1) Total Bilirubin 0.2 mg/dL (0.2-1.0) 0.4 mg/dL (0.2-1.0) Aspartate Amino Transf (AST/SGOT) 33 U/L (15-37) 29 U/L (15-37) Alanine Aminotransferase (ALT/SGPT) 46 U/L (14-59) 40 U/L (14-59) Alkaline Phosphatase 114 U/L (46-116) 98 U/L (46-116) Total Protein 7.0 g/dL (6.4-8.2) 6.2 g/dL (6.4-8.2) Albumin 2.9 g/dL (3.4-5.0) 2.6 g/dL (3.4-5.0) Albumin/Globulin Ratio 0.7 (1.0-1.7) 0.7 (1.0-1.7) Procalcitonin < 0.10 ng/mL (0.00-0.10) Influenza Type A Antigen Negative (NEGATIVE) Influenza Type B Antigen Negative (NEGATIVE) Medications Current Medications Sodium Chloride 500 ml @ 500 mls/hr 1X ONCE IV Last administered on 06/10/19at 15:30; Start 06/10/19 at 14:45; Stop 06/10/19 at 15:44; Status DC Iohexol (Omnipaque 300 Mg/ml) 75 ml 1X ONCE IV Last administered on 06/10/19at 16:30; Start 06/10/19 at 15:15; Stop 06/10/19 at 15:18; Status DC Azithromycin 250 ml @ 250 mls/hr 1X ONCE IV Last administered on 06/10/19at 16:45; Start 06/10/19 at 16:45; Stop 06/10/19 at 17:44; Status DC Ceftriaxone Sodium (Rocephin) 1 gm 1X ONCE IVP Last administered on 06/10/19at 16:45; Start 06/10/19 at 16:45; Stop 06/10/19 at 16:46; Status DC Ondansetron HCl (Zofran) 4 mg PRN Q8HRS PRN IV NAUSEA/VOMITING; Start 06/10/19 at 17:30; Stop 06/10/19 at 18:01; Status DC Acetaminophen (Tylenol) 650 mg PRN Q4HRS PRN PO FEVER; Start 06/10/19 at 17:30; Stop 06/10/19 at 18:06; Status DC Potassium Chloride (Klor-Con) 40 meq 1X ONCE PO Last administered on 06/10/19at 19:20; Start 06/10/19 at 18:00; Stop 06/10/19 at 18:01; Status DC Potassium Chloride (Klor-Con) 20 meq [id number] PO Last administered on 06/11/19at 08:47; Start 06/11/19 at 08:00 Sodium Chloride (Normal Saline Flush) 3 ml QSHIFT PRN IV AFTER MEDS AND BLOOD DRAWS; Start 06/10/19 at 18:00 Sodium Chloride 1,000 ml @ 145 mls/hr Q6H54M IV Last administered on 06/11/19at 08:47; Start 06/10/19 at 17:57 Ondansetron HCl (Zofran) 4 mg PRN Q4HRS PRN IV NAUSEA/VOMITING Last administered on 06/11/19at 05:44; Start 06/10/19 at 18:00 Acetaminophen (Tylenol) 650 mg PRN Q4HRS PRN PO TEMP OVER 100.4F OR MILD PAIN; Start 06/10/19 at 18:00 Al Hydroxide/Mg Hydroxide (Mylanta Plus Xs) 30 ml PRN DAILY PRN PO HEARTBURN / GAS; Start 06/10/19 at 18:00 Clonidine HCl (Catapres) 0.1 mg PRN Q6HRS PRN PO SBP>160 OR DBP>90; Start 06/10/19 at 18:00 Docusate Sodium (Colace) 100 mg PRN BID PRN PO CONSTIPATION; Start 06/10/19 at 18:00 Albuterol/ Ipratropium (Duoneb) 3 ml Q4HRS NEB Last administered on 06/11/19at 08:12; Start 06/10/19 at 20:00 Guaifenesin (Robitussin) 200 mg PRN Q4HRS PRN PO COUGH; Start 06/10/19 at 18:00 Vancomycin HCl (Vanco Per Pharmacy) 1 each PRN DAILY PRN MC SEE COMMENTS Last administered on 06/10/19at 20:20; Start 06/10/19 at 18:00 Piperacillin Sod/ Tazobactam Sod 3.375 gm/Sodium Chloride 50 ml @ 100 mls/hr Q6HRS IV Last administered on 06/11/19at 05:41; Start 06/10/19 at 19:00 Heparin Sodium (Porcine) (Heparin Sodium) 5,000 unit Q8HRS SQ Last administered on 06/11/19at 05:43; Start 06/10/19 at 22:00 Vancomycin HCl 2 gm/Sodium Chloride 500 ml @ 250 mls/hr 1X ONCE IV Last administered on 06/10/19at 19:22; Start 06/10/19 at 18:15; Stop 06/10/19 at 20:14; Status DC Vancomycin HCl 1.5 gm/Sodium Chloride 500 ml @ 250 mls/hr Q8H IV Last administered on 06/11/19at 03:45; Start 06/11/19 at 04:00 Vancomycin HCl (Vancomycin Trough Level) 1 each 1X ONCE MC ; Start 06/11/19 at 19:30; Stop 06/11/19 at 19:31 Benzonatate (Tessalon Perle) 100 mg TID PO Last administered on 06/11/19at 08:47; Start 06/10/19 at 21:00 Famotidine (Pepcid) 20 mg BID PO Last administered on 06/11/19at 08:46; Start 06/10/19 at 21:00 Non-Formulary Medication (Albuterol Sulfate (Ventolin Hfa Inhaler)) 2 puff Q4HRS INH ; Start 06/11/19 at 00:00; Status UNV Al Hydroxide/Mg Hydroxide (Mylanta Plus Xs) 30 ml PRN Q8HRS PRN PO HEARTBURN / GAS; Start 06/10/19 at 20:45; Status UNV Ondansetron HCl (Zofran Odt) 4 mg PRN Q8HRS PRN PO NAUSEA/VOMITING; Start 06/09 at 20:45 Active Scripts Active Maalox Advanced Suspension (Mag Hydrox/Aluminum Hyd/Simeth) 355 Ml Oral.susp 355 Ml PO Q8HRS PRN Zofran (Ondansetron Hcl) 4 Mg Tablet 1 Tab PO Q6HRS Pepcid (Famotidine) 20 Mg Tablet 20 Mg PO BID Naprosyn (Naproxen) 500 Mg Tablet 500 Mg PO BID Ventolin Hfa Inhaler (Albuterol Sulfate) 18 Gm Hfa.aer.ad 2 Puff INH Q4HRS Tessalon Perle (Benzonatate) 100 Mg Capsule 1 Cap PO TID Prednisone 50 Mg Tablet 1 Tab PO DAILY Reported No Known Medications Prior To Admisstion (Info) Each 1 Each Vitals/I & O Vital Sign - Last 24 Hours 06/10/19 06/10/19 06/10/19 06/10/19 14:04 14:15 14:45 15:30 Temp 100.5 100.5 Pulse 110 106 104 102 Resp 18 21 35 25 B/P (MAP) 116/75 (89) 151/84 (106) 116/75 (89) 136/84 (101) Pulse Ox 93 96 96 100 O2 Delivery Room Air Room Air Room Air Room Air 06/10/19 06/10/19 06/10/19 06/10/19 15:45 16:15 16:30 17:30 Pulse 98 98 106 104 Resp 18 18 23 22 B/P (MAP) 143/89 (107) 146/77 (100) 153/78 (103) 135/76 (95) Pulse Ox 98 98 98 98 O2 Delivery Room Air Room Air Room Air Room Air 06/10/19 06/10/19 06/10/19 06/10/19 18:30 19:00 20:00 20:00 Temp 99.5 99.0 99.5 99.0 Pulse 99 99 97 Resp 16 18 B/P (MAP) 159/78 (105) 156/86 (109) 160/98 (118) Pulse Ox 97 95 96 O2 Delivery Room Air Room Air Room Air Room Air 06/10/19 06/10/19 06/10/19 06/10/19 21:00 21:48 22:00 23:00 Pulse 91 96 82 Resp 16 16 18 B/P (MAP) 136/74 (94) 132/67 (88) 117/76 (90) Pulse Ox 96 98 95 95 O2 Delivery Room Air Room Air Room Air Room Air 06/11/19 06/11/19 06/11/19 06/11/19 00:01 00:01 01:00 02:00 Temp 98.6 98.6 Pulse 78 84 74 Resp 18 18 18 B/P (MAP) 133/73 (93) 137/79 (98) 111/74 (86) Pulse Ox 94 95 94 O2 Delivery Room Air Room Air Room Air Room Air 06/11/19 06/11/19 06/11/19 06/11/19 03:00 03:59 04:04 05:00 Temp 99.8 99.8 Pulse 80 91 89 Resp 18 18 18 B/P (MAP) 120/79 (93) 143/87 (105) 140/72 (94) Pulse Ox 93 94 96 O2 Delivery Room Air Room Air Room Air Room Air 06/11/19 06/11/19 06/11/19 06/11/19 06:00 07:00 08:00 08:13 Temp 99.3 99.3 99.3 99.3 Pulse 96 88 112 Resp 18 17 18 B/P (MAP) 133/72 (92) 120/72 (88) 139/73 (95) Pulse Ox 95 95 92 95 O2 Delivery Room Air Room Air Room Air Room Air 06/11/19 09:00 Temp 99.4 99.4 Pulse 112 Resp 17 B/P (MAP) 130/68 (88) Pulse Ox 94 O2 Delivery Room Air Intake and Output 06/10/19 06/10/19 06/11/19 15:00 23:00 07:00 Intake Total 550 ml 1500 ml Output Total 0 ml 0 ml Balance 550 ml 1500 ml Images CXR - The heart size is borderline enlarged. The great vessels appear unremarkable. There is no hilar or mediastinal mass. The lungs are hypoventilatory and show ill-defined bilateral patchy airspace opacities, new in the interval.. There is no pleural effusion or pneumothorax. There are no significant osseous abnormalities. IMPRESSION: New ill-defined bilateral patchy airspace opacities. Correlate for any evidence of pneumonia. CT of chest with contrast Visualized portions of the thyroid are unremarkable. No enlarged mediastinal lymph nodes are identified. Heart size is normal. No pericardial effusion. Thoracic aorta has a normal co urse and caliber. Pulmonary artery is not enlarged. Airways are patent. Patchy areas of consolidation and groundglass opacity are noted predominantly at the upper lungs bilaterally. No suspicious lung nodules. No pleural effusion or thickening. Visualized upper abdomen is unremarkable. No suspicious osseous lesions or acute fractures. IMPRESSION: Patchy bilateral airspace disease favored to be infectious or inflammatory in etiology. Correlate for atypical/viral causes. MI GUEVARA MD Jun 11, 2019 09:58
--- NOTE | 2019-06-11 10:42 | PDOC ---
Infectious Disease Note Vital Sign Vital Signs Vital Signs Date Time Temp Pulse Resp B/P (MAP) Pulse Ox O2 Delivery O2 Flow Rate FiO2 06/11/19 09:00 99.4 112 17 130/68 (88) 94 Room Air 99.4 Labs Lab Laboratory Tests Test 06/10/19 15:31 06/10/19 15:37 06/11/19 05:00 06/11/19 09:00 Mycoplasma Serology (LAB) Positive (NEGATIVE) White Blood Count 3.9 x10^3/uL (4.0-11.0) 4.1 x10^3/uL (4.0-11.0) Red Blood Count 4.42 x10^6/uL (3.50-5.40) 3.93 x10^6/uL (3.50-5.40) Hemoglobin 12.1 g/dL (12.0-15.5) 10.7 g/dL (12.0-15.5) Hematocrit 36.2 % (36.0-47.0) 32.6 % (36.0-47.0) Mean Corpuscular Volume 82 fL (79-100) 83 fL (79-100) Mean Corpuscular Hemoglobin 28 pg (25-35) 27 pg (25-35) Mean Corpuscular Hemoglobin Concent 34 g/dL (31-37) 33 g/dL (31-37) Red Cell Distribution Width 15.0 % (11.5-14.5) 15.2 % (11.5-14.5) Platelet Count 202 x10^3/uL (140-400) 189 x10^3/uL (140-400) Neutrophils (%) (Auto) 73 % (31-73) 78 % (31-73) Lymphocytes (%) (Auto) 20 % (24-48) 16 % (24-48) Monocytes (%) (Auto) 6 % (0-9) 6 % (0-9) Eosinophils (%) (Auto) 0 % (0-3) 0 % (0-3) Basophils (%) (Auto) 1 % (0-3) 0 % (0-3) Neutrophils # (Auto) 2.8 x10^3/uL (1.8-7.7) 3.2 x10^3/uL (1.8-7.7) Lymphocytes # (Auto) 0.8 x10^3/uL (1.0-4.8) 0.6 x10^3/uL (1.0-4.8) Monocytes # (Auto) 0.2 x10^3/uL (0.0-1.1) 0.3 x10^3/uL (0.0-1.1) Eosinophils # (Auto) 0.0 x10^3/uL (0.0-0.7) 0.0 x10^3/uL (0.0-0.7) Basophils # (Auto) 0.0 x10^3/uL (0.0-0.2) 0.0 x10^3/uL (0.0-0.2) Prothrombin Time 11.9 SEC (11.7-14.0) Prothromb Time International Ratio 0.9 (0.8-1.1) Activated Partial Thromboplast Time 27 SEC (24-38) Sodium Level 141 mmol/L (136-145) 142 mmol/L (136-145) Potassium Level 3.3 mmol/L (3.5-5.1) 3.4 mmol/L (3.5-5.1) Chloride Level 103 mmol/L (98-107) 106 mmol/L (98-107) Carbon Dioxide Level 28 mmol/L (21-32) 26 mmol/L (21-32) Anion Gap 10 (6-14) 10 (6-14) Blood Urea Nitrogen 5 mg/dL (7-20) 3 mg/dL (7-20) Creatinine 0.6 mg/dL (0.6-1.0) 0.5 mg/dL (0.6-1.0) Estimated GFR (Cockcroft-Gault) 108.1 133.4 BUN/Creatinine Ratio 8 (6-20) 6 (6-20) Glucose Level 113 mg/dL (70-99) 110 mg/dL (70-99) Lactic Acid Level 1.3 mmol/L (0.4-2.0) Calcium Level 8.1 mg/dL (8.5-10.1) 7.6 mg/dL (8.5-10.1) Total Bilirubin 0.2 mg/dL (0.2-1.0) 0.4 mg/dL (0.2-1.0) Aspartate Amino Transf (AST/SGOT) 33 U/L (15-37) 29 U/L (15-37) Alanine Aminotransferase (ALT/SGPT) 46 U/L (14-59) 40 U/L (14-59) Alkaline Phosphatase 114 U/L (46-116) 98 U/L (46-116) Total Protein 7.0 g/dL (6.4-8.2) 6.2 g/dL (6.4-8.2) Albumin 2.9 g/dL (3.4-5.0) 2.6 g/dL (3.4-5.0) Albumin/Globulin Ratio 0.7 (1.0-1.7) 0.7 (1.0-1.7) Procalcitonin < 0.10 ng/mL (0.00-0.10) Influenza Type A Antigen Negative (NEGATIVE) Influenza Type B Antigen Negative (NEGATIVE) Objective Assessment Pneumonia Positive mycoplasma Fever Leukopenia Morbid obesity Hypertenion Plan Plan of Care vanc and Zosyn Add doxycyline Monitor lab values/temp f/u cultures COVID-19 pending Droplet precautions Thank you [id number] Better and eating lunch + Mycoplasma 06/09 D/w daughter on phone - did not have a cough- d/w nursing Attending Co-Sign Attending Co-Sign The patient was seen and interviewed as well as examined at the bedside. The chart was reviewed. The case was discussed. Agree with the plan of care. LAVELLE DEMARCO APRN Jun 11, 2019 10:42 CORTEZ MENDEZ MD Jun 11, 2019 13:34
[2019-06-11] MEDS: DOXYCYCLINE HYCLATE 100 MG TABLET PO SCH ×2 (11:32→21:42)
--- NOTE | 2019-06-11 11:46 | CONS ---
DATE OF CONSULTATION: 06/11/2019 REFERRING PHYSICIAN: Wilmar Keating M.D. REASON FOR CONSULTATION: Pneumonia, rule out COVID-19. HISTORY OF PRESENT ILLNESS: The patient is a 43-year-old female, non-Estonian speaking, who presented with complaints of worsening cough, shortness of air, fever and body aches for about a week now. She has been taking Tylenol and Pedialyte without significant relief. Her currently has similar symptoms with body aches and fever as well, but no cough. She denies recent traveling, ill contacts or exposure to COVID-19 individuals. She denies antibiotics use or hospitalizations within the last several months. On arrival to the ER, she was febrile with a temperature of 100.5. She was leukopenic with a WBC count of 3.9. Procalcitonin less than 0.10. Mycoplasma serology was positive. A chest CT showed patchy bilateral airspace disease, favoring infectious or inflammatory etiology. Correlate for atypical/viral causes. She was given a one-time dose of azithromycin and Rocephin and is now on vancomycin and Zosyn. PAST MEDICAL HISTORY: Morbid obesity, asthma, GERD, hypertension, osteoarthritis. PAST SURGICAL HISTORY: Cholecystectomy, tubal ligation. FAMILY HISTORY: High cholesterol and hypertension, obesity. SOCIAL HISTORY: The patient is and lives at home. She is a nonsmoker. She is unemployed. She has migrated to [facility] from [place] 25 years ago. She has 3 dogs. ALLERGIES: No known drug allergies. MEDICATIONS: Vancomycin; Zosyn; one-time dose of azithromycin and ceftriaxone. Guaifenesin, DuoNeb, ondansetron, Tylenol, Tessalon Perles, clonidine, Pepcid, Colace, potassium. Other medications are available and have been reviewed on the MAY. REVIEW OF SYSTEMS: The patient is not feeling well. She feels weak and tired. She is not very hungry. Denies sinus congestion or drainage. Her throat is dry. She denies chest pain or heart palpitations. Denies nausea, vomiting or diarrhea. Denies dysuria, frequency or urgency. Denies rash or itching. PHYSICAL EXAMINATION: VITAL SIGNS: Temperature is 99.4, blood pressure 130/68, heart rate 112, respiratory rate 94% on room air. BMI 63. GENERAL: The patient is propped up in bed, alert, no apparent distress. HEENT: Pupils equally round and reactive. Oropharynx pink and moist. NECK: Supple. LUNGS: Clear to auscultation. HEART: S1, S2. ABDOMEN: Obese, soft, nontender with bowel sounds present. EXTREMITIES: No gross edema or cyanosis. SKIN: Warm to touch without signs of rash. NEUROLOGIC: Alert and answering questions appropriately (via save all operator). LABORATORY DATA: WBC 4.1 from 3.9 on admission, hemoglobin 10.7, platelets 189,000. Sodium 142, potassium 3.4, creatinine 0.5, BUN 3, glucose 110. Lactic acid 1.3, total bilirubin 0.4, AST 29, ALT 40, albumin 2.6. Influenza screen negative. Mycoplasma serology positive. CT chest per HPI. Chest x-ray showed new ill-defined bilateral patchy air space opacities. Novel Coronavirus, Legionella and blood and urine cultures pending. ASSESSMENT: 1. Pneumonia. 2. Positive mycoplasma. 3. Fever. 4. Leukopenia. 5. Morbid obesity. 6. Hypertension. PLAN: 1. Add doxycycline. 2. Monitor laboratory values and temperature. 3. Follow up on culture results. 4. COVID-19 is pending. Use droplet precautions. 5. Discussed with nursing. Thank you, Dr. Keating for asking us to participate in this patient's care. Should you have further questions or concerns, please call. CORTEZ MENDEZ MD DR: BERTHA/[email or web address] JOB#: [id number] / [id number]
[2019-06-11 19:54] LABS: VANC TR 7.5 mcg/mL (10.0-20.0)
[2019-06-11] MEDS: VANCOMYCIN PER PHARMACY MC PRN (20:33)
--- NOTE | 2019-06-11 20:34 | NUR ---
Pharmacy Vancomycin Dosing Note S: Consulted to monitor and dose vancomycin started 06/10/19. O: MIKE BELTRAN is a 43 year old F with pneumonia, suspected COVID-19 . Other Antibiotics: ZOSYN 3.375G IV Q6HRS LABS: Last BUN: 3 Last Creatinine: 0.5 Creatinine Clearance: > 100 mL/min Last WBC: 4.1 Last Procalcitonin: - Tmax (past 24 hours): 99.7 Microbiology: BLOOD CX (06/09): NGTD URINE CX PENDING I/O: I: 2049; O: 5 voids Drug Levels: Last Trough level: 7.5 on 06/11/19 at 1930 Last dose given 06/11/19 at 1143 Vancomycin Dosing: Dosing Weight: Actual Target Trough: 15-20 A: Patient was receiving vancomycin 1500 mg IV q 8hrs. A trough of 7.5 mcg/ml is below goal range. Renal function remains stable. Will increase dose this evening; pharmacy to consult with ID team for possible change in agent. P: 1. Change to Vancomycin 2000 mg IV q8h 2. Follow up Trough level on 06/12/19 at 1999 3. Pharmacy will continue to monitor, follow and adjust therapy as needed. GAVIN STERLING [facility], 06/11/192033
[2019-06-11] MEDS: LACTOBACILLUS RHAMNOSUS GG 1 CAPSULE. PO SCH (21:42)
[2019-06-11] MEDS: VANCOMYCIN 2 GM in IV NORMAL SALINE 500ML BAG 500 ML IV SCH (21:43)
[2019-06-11] MEDS ORDERED: DEXTROSE 50% 25 GM / 50ML DISP.SYRIN. IV ONE (22:27)
[2019-06-12] VITALS (14 sets, daily range): BP systolic 110–153; BP diastolic 64–81
[2019-06-12] MEDS: PIPERACILLIN/TAZOBACTAM 3.375 GM in IV NORMAL SALINE 50ML 50 ML IV SCH ×4 (00:06→18:05)
[2019-06-12] MEDS: IV NORMAL SALINE 1000ML BAG 1,000 ML IV SCH ×3 (01:48→18:05)
[2019-06-12 04:35] LABS: CREATININE 0.5 mg/dL (0.6-1.0); GFR 133.4
[2019-06-12] MEDS: VANCOMYCIN 2 GM in IV NORMAL SALINE 500ML BAG 500 ML IV SCH (05:43)
[2019-06-12] MEDS: HEPARIN for SUB-Q USE 5,000 UNIT/ML VIAL. SQ SCH ×2 (05:48→14:00)
--- NOTE | 2019-06-12 07:10 | NUR ---
IP: COVID pending requiring droplet/contact precautions using a faceshield until results are verified.
--- NOTE | 2019-06-12 08:23 | PDOC ---
PULMONARY PROGRESS NOTES Subjective PT FEELS BETTER LESS SOA NOT N/V Vitals Vital Signs Date Time Temp Pulse Resp B/P (MAP) Pulse Ox O2 Delivery O2 Flow Rate FiO2 06/12/19 07:00 99.7 87 20 144/80 (101) 92 Room Air 99.7 ROS: No Nausea, No Chest Pain, No Abdominal Pain, No Increase Cough General: Alert Lungs: Crackles Cardiovascular: S1, S2 Abdomen: Soft Neuro Exam: Alert Extremities: No Edema Skin: Warm Labs Laboratory Tests Test 06/10/19 15:31 06/10/19 15:37 06/11/19 05:00 06/11/19 09:00 Mycoplasma Serology (LAB) Positive (NEGATIVE) White Blood Count 3.9 x10^3/uL (4.0-11.0) 4.1 x10^3/uL (4.0-11.0) Red Blood Count 4.42 x10^6/uL (3.50-5.40) 3.93 x10^6/uL (3.50-5.40) Hemoglobin 12.1 g/dL (12.0-15.5) 10.7 g/dL (12.0-15.5) Hematocrit 36.2 % (36.0-47.0) 32.6 % (36.0-47.0) Mean Corpuscular Volume 82 fL (79-100) 83 fL (79-100) Mean Corpuscular Hemoglobin 28 pg (25-35) 27 pg (25-35) Mean Corpuscular Hemoglobin Concent 34 g/dL (31-37) 33 g/dL (31-37) Red Cell Distribution Width 15.0 % (11.5-14.5) 15.2 % (11.5-14.5) Platelet Count 202 x10^3/uL (140-400) 189 x10^3/uL (140-400) Neutrophils (%) (Auto) 73 % (31-73) 78 % (31-73) Lymphocytes (%) (Auto) 20 % (24-48) 16 % (24-48) Monocytes (%) (Auto) 6 % (0-9) 6 % (0-9) Eosinophils (%) (Auto) 0 % (0-3) 0 % (0-3) Basophils (%) (Auto) 1 % (0-3) 0 % (0-3) Neutrophils # (Auto) 2.8 x10^3/uL (1.8-7.7) 3.2 x10^3/uL (1.8-7.7) Lymphocytes # (Auto) 0.8 x10^3/uL (1.0-4.8) 0.6 x10^3/uL (1.0-4.8) Monocytes # (Auto) 0.2 x10^3/uL (0.0-1.1) 0.3 x10^3/uL (0.0-1.1) Eosinophils # (Auto) 0.0 x10^3/uL (0.0-0.7) 0.0 x10^3/uL (0.0-0.7) Basophils # (Auto) 0.0 x10^3/uL (0.0-0.2) 0.0 x10^3/uL (0.0-0.2) Prothrombin Time 11.9 SEC (11.7-14.0) Prothromb Time International Ratio 0.9 (0.8-1.1) Activated Partial Thromboplast Time 27 SEC (24-38) Sodium Level 141 mmol/L (136-145) 142 mmol/L (136-145) Potassium Level 3.3 mmol/L (3.5-5.1) 3.4 mmol/L (3.5-5.1) Chloride Level 103 mmol/L (98-107) 106 mmol/L (98-107) Carbon Dioxide Level 28 mmol/L (21-32) 26 mmol/L (21-32) Anion Gap 10 (6-14) 10 (6-14) Blood Urea Nitrogen 5 mg/dL (7-20) 3 mg/dL (7-20) Creatinine 0.6 mg/dL (0.6-1.0) 0.5 mg/dL (0.6-1.0) Estimated GFR (Cockcroft-Gault) 108.1 133.4 BUN/Creatinine Ratio 8 (6-20) 6 (6-20) Glucose Level 113 mg/dL (70-99) 110 mg/dL (70-99) Lactic Acid Level 1.3 mmol/L (0.4-2.0) Calcium Level 8.1 mg/dL (8.5-10.1) 7.6 mg/dL (8.5-10.1) Total Bilirubin 0.2 mg/dL (0.2-1.0) 0.4 mg/dL (0.2-1.0) Aspartate Amino Transf (AST/SGOT) 33 U/L (15-37) 29 U/L (15-37) Alanine Aminotransferase (ALT/SGPT) 46 U/L (14-59) 40 U/L (14-59) Alkaline Phosphatase 114 U/L (46-116) 98 U/L (46-116) Total Protein 7.0 g/dL (6.4-8.2) 6.2 g/dL (6.4-8.2) Albumin 2.9 g/dL (3.4-5.0) 2.6 g/dL (3.4-5.0) Albumin/Globulin Ratio 0.7 (1.0-1.7) 0.7 (1.0-1.7) Procalcitonin < 0.10 ng/mL (0.00-0.10) Influenza Type A Antigen Negative (NEGATIVE) Influenza Type B Antigen Negative (NEGATIVE) Test 06/11/19 19:30 06/12/19 03:40 Vancomycin Level Trough 7.5 mcg/mL (10.0-20.0) Vancomycin Last Dose Date Unk Vancomycin Last Dose Time Unk Creatinine 0.5 mg/dL (0.6-1.0) Estimated GFR (Cockcroft-Gault) 133.4 Laboratory Tests Test 06/11/19 09:00 06/11/19 19:30 06/12/19 03:40 Influenza Type A Antigen Negative (NEGATIVE) Influenza Type B Antigen Negative (NEGATIVE) Vancomycin Level Trough 7.5 mcg/mL (10.0-20.0) Vancomycin Last Dose Date Unk Vancomycin Last Dose Time Unk Creatinine 0.5 mg/dL (0.6-1.0) Estimated GFR (Cockcroft-Gault) 133.4 Medications Active Scripts Medications Dose Route/Sig Max Daily Dose Days Date Category Maalox Advanced Suspension (Mag Hydrox/Aluminum Hyd/Simeth) 355 Ml Oral.susp 355 Ml PO Q8HRS PRN 11/07/18 Rx Zofran (Ondansetron Hcl) 4 Mg Tablet 1 Tab PO Q6HRS 11/07/18 Rx Pepcid (Famotidine) 20 Mg Tablet 20 Mg PO BID 11/07/18 Rx Naprosyn (Naproxen) 500 Mg Tablet 500 Mg PO BID 09/16/18 Rx Ventolin Hfa Inhaler (Albuterol Sulfate) 18 Gm Hfa.aer.ad 2 Puff INH Q4HRS 06/26/18 Rx Tessalon Perle (Benzonatate) 100 Mg Capsule 1 Cap PO TID 06/26/18 Rx Prednisone 50 Mg Tablet 1 Tab PO DAILY 06/26/18 Rx No Known Medications Prior To Admisstion (Info) Each 1 Each 06/24/15 Reported Impression . 1. Acute respiratory failure due to pneumonia and asthma. 2. Abnormal CT of the chest. 3. Pneumonia. 4. Coronavirus disease 2019 suspect. 5. Mycoplasma serology positive. 6. Obesity, probable obstructive sleep apnea-hypopnea syndrome. 7. Hypokalemia. 8. Fever/febrile illness. 9. Asthma. Plan . REVIEWED ID NOTE ANTIB DE ESCALATE SARS-2 PENDING 02 CARRINGTON BURROUGHS MD Jun 12, 2019 08:23
--- NOTE | 2019-06-12 08:41 | PDOC ---
Infectious Disease Note Subjective Subjective Better No F/diarrhea Mild RLQ abd pain "Small" Vital Sign Vital Signs Vital Signs Date Time Temp Pulse Resp B/P (MAP) Pulse Ox O2 Delivery O2 Flow Rate FiO2 06/12/19 07:00 99.7 87 20 144/80 (101) 92 Room Air 99.7 Physical Exam PHYSICAL EXAM GENERAL: The patient is propped up in bed, alert, no apparent distress.Looks well HEENT: Pupils equally round and reactive. Oropharynx pink and moist. NECK: Supple. LUNGS: Clear to auscultation. HEART: S1, S2. ABDOMEN: Obese, soft, nontender with bowel sounds present. RLQ - NT on palp, No Warmth/erythema/wound or edema. In waistband area EXTREMITIES: No gross edema or cyanosis. SKIN: Warm to touch without signs of rash. NEUROLOGIC: Alert and answering questions appropriately Labs Lab Laboratory Tests Test 06/11/19 09:00 06/11/19 19:30 06/12/19 03:40 Influenza Type A Antigen Negative (NEGATIVE) Influenza Type B Antigen Negative (NEGATIVE) Vancomycin Level Trough 7.5 mcg/mL (10.0-20.0) Vancomycin Last Dose Date Unk Vancomycin Last Dose Time Unk Creatinine 0.5 mg/dL (0.6-1.0) Estimated GFR (Cockcroft-Gault) 133.4 Micro Microbiology 06/10/19 Blood Culture - Preliminary, Resulted NO GROWTH AFTER 1 DAY Objective Assessment Pneumonia Positive mycoplasma 06/09 Fever Leukopenia Morbid obesity Hypertenion Plan Plan of Care D/c vanc Zosyn D/c doxycyline change to Azithromycin Monitor lab values/temp f/u cultures COVID-19 pending Droplet precautions CORTEZ MENDEZ MD Jun 12, 2019 08:41
[2019-06-12] MEDS: ACETAMINOPHEN 325 MG TABLET. PO PRN ×2 (08:42→13:46)
[2019-06-12] MEDS: FAMOTIDINE 20 MG TABLET. PO SCH (08:42)
[2019-06-12] MEDS: BENZONATATE 100 MG CAPSULE. PO SCH ×2 (08:42→13:46)
[2019-06-12] MEDS: LACTOBACILLUS RHAMNOSUS GG 1 CAPSULE. PO SCH (08:42)
[2019-06-12] MEDS: POTASSIUM CHLORIDE 20 MEQ TABLET.ER. PO SCH (08:43)
[2019-06-12] MEDS: IPRATRPIUM/ALBUTEROL 0.5/2.5MG 3 ML NEBU. NEB SCH ×4 (08:46→20:00)
--- NOTE | 2019-06-12 11:32 | PDOC ---
[facility] PROGRESS NOTE Chief Complaint Chief Complaint Cough and fever Patchy bilateral airspace disease C/W PNEUMONIA favored to be infectious or inflammatory in etiology. atypical/viral causes.vs covid-[address] CHEST extreme morbid obesity Hypokalemia Possible OHS SIRS Acute hypoxic respiratory failure due to pneumonia and asthma. Abnormal CT of the chest. Pneumonia - Myoplasma serology positive Coronavirus disease 2019 suspected Asthma. History of Present Illness History of Present Illness [id number] Patient seen and examined in the ICU with full respiratory isolation gear on She is in respiratory isolation Discussed with RN Chart reviewed Ms Daley is a 43 yo F who presents with cough, fever, shortness of breath, body aches is been ongoing for 3 days. Denies sick contact. Denies being around any positive thorne test. Admitted to ICU hypoxic. Feeling about the same, awaiting test on COVID. No CP. Doxycycline added per ID. Vitals/I&O Vitals/I&O: Vital Signs Date Time Temp Pulse Resp B/P (MAP) Pulse Ox O2 Delivery O2 Flow Rate FiO2 06/12/19 10:12 Room Air 06/12/19 09:00 98.8 88 20 135/76 (95) 94 98.8 I & O 06/11/19 06/11/19 06/12/19 15:00 23:00 07:00 Intake Total 480 ml 330 ml Output Total 1 ml 0 ml 0 ml Balance 479 ml 330 ml 0 ml Physical Exam Physical Exam: GENERAL: The patient is propped up in bed, alert, no apparent distress.Looks well HEENT: Pupils equally round and reactive. Oropharynx pink and moist. NECK: Supple. LUNGS: Clear to auscultation. HEART: S1, S2. ABDOMEN: Obese, soft, nontender with bowel sounds present. RLQ - NT on palp, No Warmth/erythema/wound or edema. In waistband area EXTREMITIES: No gross edema or cyanosis. SKIN: Warm to touch without signs of rash. NEUROLOGIC: Alert and answering questions appropriately Labs Labs: Laboratory Tests Test 06/11/19 19:30 06/12/19 03:40 Vancomycin Level Trough 7.5 mcg/mL (10.0-20.0) Vancomycin Last Dose Date Unk Vancomycin Last Dose Time Unk Creatinine 0.5 mg/dL (0.6-1.0) Estimated GFR (Cockcroft-Gault) 133.4 Assessment and Plan Assessmemt and Plan Problems Medical Problems: (1) Acute viral syndrome Status: Acute (2) ARDS (adult respiratory distress syndrome) Status: Acute (3) Pneumonia Status: Acute (4) Suspected 2019 novel coronavirus infection Status: Acute Cough and fever Patchy bilateral airspace disease C/W PNEUMONIA favored to be infectious or inflammatory in etiology. atypical/viral causes.vs covid-[address] CHEST extreme morbid obesity Hypokalemia Possible OHS SIRS Acute hypoxic respiratory failure due to pneumonia and asthma. Abnormal CT of the chest. Pneumonia - Myoplasma serology positive Coronavirus disease 2019 suspected Asthma. Plan ICU monitoring COVID-19 AG LEGIONELLA AG URINE CONSULT PULM AND ID EMPIRIC IV ANTIBIOTICS, VANC, ZOSYN DVT PROPHYLAXIS RESP ISOLATION, neg airflow room o2 support REPLACE K HS OXIMETRY STUDY Total time 31 minutes Comment Review of Relevant I have reviewed the following items brendan (where applicable) has been applied. Medications: Current Medications Medications (Trade) Dose Ordered Sig/Marlo Route PRN Reason Start Time Stop Time Status Last Admin Dose Admin Vancomycin HCl (Vancomycin Trough Level) 1 each 1X ONCE MC 06/11/19 19:30 06/11/19 19:31 DC 06/11/19 19:30 Lactobacillus Rhamnosus (Culturelle) 1 cap BID PO 06/11/19 21:00 06/12/19 08:42 Vancomycin HCl 2 gm/Sodium Chloride 500 ml @ 250 mls/hr Q8H IV 06/11/19 20:30 06/12/19 08:39 DC 06/12/19 05:43 NIKI DANG III DO Jun 12, 2019 11:32
[2019-06-12] MEDS: AZITHROMYCIN 250 MG TABLET. PO SCH (12:29)
--- NOTE | 2019-06-12 15:40 | NUR ---
SS following for discharge planning. SS reviewed pt chart and discussed with RNMartha. Pt is from home and is currently pending test results for COVID19. SS will continue to follow for discharge planning.
[2019-06-13] MEDS: LACTOBACILLUS RHAMNOSUS GG 1 CAPSULE. PO SCH ×3 (00:05→21:15)
[2019-06-13] MEDS: ACETAMINOPHEN 325 MG TABLET. PO PRN (00:05)
[2019-06-13] MEDS: FAMOTIDINE 20 MG TABLET. PO SCH ×3 (00:06→21:15)
[2019-06-13] MEDS: BENZONATATE 100 MG CAPSULE. PO SCH ×4 (00:06→21:15)
[2019-06-13] MEDS: IV NORMAL SALINE 1000ML BAG 1,000 ML IV SCH (00:07)
[2019-06-13] MEDS: PIPERACILLIN/TAZOBACTAM 3.375 GM in IV NORMAL SALINE 50ML 50 ML IV SCH ×2 (00:07→05:42)
[2019-06-13] MEDS: HEPARIN for SUB-Q USE 5,000 UNIT/ML VIAL. SQ SCH ×4 (00:16→21:30)
[2019-06-13] MEDS: IPRATRPIUM/ALBUTEROL 0.5/2.5MG 3 ML NEBU. NEB SCH ×6 (00:57→20:00)
[2019-06-13 03:30] VITALS: BP 128/79
[2019-06-13 07:00] VITALS: BP 145/80
[2019-06-13 07:18] LABS: BASO % 1 % (0-3); EOS % 0 % (0-3); HEMATOCRIT 31.3 % (36.0-47.0); HEMOGLOBIN 10.4 g/dL (12.0-15.5); LYMPH # 0.9 x10^3/uL (1.0-4.8); LYMPH % 29 % (24-48); MEAN CORPUSCULAR HEMOGLOBIN 28 pg (25-35); MEAN CORPUSCULAR HGB CONC 33 g/dL (31-37); MEAN CORPUSCULAR VOLUME 83 fL (79-100); MONO # 0.3 x10^3/uL (0.0-1.1); MONO % 9 % (0-9); NEUT # 1.8 x10^3/uL (1.8-7.7); NEUT % 60 % (31-73); PLATELET COUNT 228 x10^3/uL (140-400); RED BLOOD COUNT 3.77 x10^6/uL (3.50-5.40); RED CELL DISTRIBUTION WIDTH 15.3 % (11.5-14.5)
[2019-06-13 07:26] LABS: CREATININE 0.5 mg/dL (0.6-1.0); GFR 133.4
--- NOTE | 2019-06-13 09:22 | PDOC ---
PULMONARY PROGRESS NOTES Subjective Patient feels better, and no increase in shortness of air Vitals Vital Signs Date Time Temp Pulse Resp B/P (MAP) Pulse Ox O2 Delivery O2 Flow Rate FiO2 06/13/19 07:46 97 Room Air 06/13/19 07:00 98.4 80 20 145/80 (101) 98.4 ROS: No Nausea, No Chest Pain, No Abdominal Pain, No Increase Cough General: Alert Lungs: Crackles Cardiovascular: S1, S2 Abdomen: Soft Neuro Exam: Alert Extremities: No Edema Skin: Warm Labs Laboratory Tests Test 06/11/19 19:30 06/12/19 03:40 06/12/19 23:20 06/13/19 06:17 Vancomycin Level Trough 7.5 mcg/mL (10.0-20.0) 3.0 mcg/mL (10.0-20.0) Vancomycin Last Dose Date Unk 06/12/19 Vancomycin Last Dose Time Unk 1030 Creatinine 0.5 mg/dL (0.6-1.0) 0.5 mg/dL (0.6-1.0) Estimated GFR (Cockcroft-Gault) 133.4 133.4 White Blood Count 3.0 x10^3/uL (4.0-11.0) Red Blood Count 3.77 x10^6/uL (3.50-5.40) Hemoglobin 10.4 g/dL (12.0-15.5) Hematocrit 31.3 % (36.0-47.0) Mean Corpuscular Volume 83 fL (79-100) Mean Corpuscular Hemoglobin 28 pg (25-35) Mean Corpuscular Hemoglobin Concent 33 g/dL (31-37) Red Cell Distribution Width 15.3 % (11.5-14.5) Platelet Count 228 x10^3/uL (140-400) Neutrophils (%) (Auto) 60 % (31-73) Lymphocytes (%) (Auto) 29 % (24-48) Monocytes (%) (Auto) 9 % (0-9) Eosinophils (%) (Auto) 0 % (0-3) Basophils (%) (Auto) 1 % (0-3) Neutrophils # (Auto) 1.8 x10^3/uL (1.8-7.7) Lymphocytes # (Auto) 0.9 x10^3/uL (1.0-4.8) Monocytes # (Auto) 0.3 x10^3/uL (0.0-1.1) Eosinophils # (Auto) 0.0 x10^3/uL (0.0-0.7) Basophils # (Auto) 0.0 x10^3/uL (0.0-0.2) Laboratory Tests Test 06/12/19 23:20 06/13/19 06:17 Vancomycin Level Trough 3.0 mcg/mL (10.0-20.0) Vancomycin Last Dose Date 06/12/19 Vancomycin Last Dose Time 1030 White Blood Count 3.0 x10^3/uL (4.0-11.0) Red Blood Count 3.77 x10^6/uL (3.50-5.40) Hemoglobin 10.4 g/dL (12.0-15.5) Hematocrit 31.3 % (36.0-47.0) Mean Corpuscular Volume 83 fL (79-100) Mean Corpuscular Hemoglobin 28 pg (25-35) Mean Corpuscular Hemoglobin Concent 33 g/dL (31-37) Red Cell Distribution Width 15.3 % (11.5-14.5) Platelet Count 228 x10^3/uL (140-400) Neutrophils (%) (Auto) 60 % (31-73) Lymphocytes (%) (Auto) 29 % (24-48) Monocytes (%) (Auto) 9 % (0-9) Eosinophils (%) (Auto) 0 % (0-3) Basophils (%) (Auto) 1 % (0-3) Neutrophils # (Auto) 1.8 x10^3/uL (1.8-7.7) Lymphocytes # (Auto) 0.9 x10^3/uL (1.0-4.8) Monocytes # (Auto) 0.3 x10^3/uL (0.0-1.1) Eosinophils # (Auto) 0.0 x10^3/uL (0.0-0.7) Basophils # (Auto) 0.0 x10^3/uL (0.0-0.2) Creatinine 0.5 mg/dL (0.6-1.0) Estimated GFR (Cockcroft-Gault) 133.4 Medications Active Scripts Medications Dose Route/Sig Max Daily Dose Days Date Category Maalox Advanced Suspension (Mag Hydrox/Aluminum Hyd/Simeth) 355 Ml Oral.susp 355 Ml PO Q8HRS PRN 11/07/18 Rx Zofran (Ondansetron Hcl) 4 Mg Tablet 1 Tab PO Q6HRS 11/07/18 Rx Pepcid (Famotidine) 20 Mg Tablet 20 Mg PO BID 11/07/18 Rx Naprosyn (Naproxen) 500 Mg Tablet 500 Mg PO BID 09/16/18 Rx Ventolin Hfa Inhaler (Albuterol Sulfate) 18 Gm Hfa.aer.ad 2 Puff INH Q4HRS 06/26/18 Rx Tessalon Perle (Benzonatate) 100 Mg Capsule 1 Cap PO TID 06/26/18 Rx Prednisone 50 Mg Tablet 1 Tab PO DAILY 06/26/18 Rx No Known Medications Prior To Admisstion (Info) Each 1 Each 06/24/15 Reported Impression . 1. Acute respiratory failure due to pneumonia and asthma. 2. Abnormal CT of the chest. 3. Pneumonia. 4. Coronavirus disease 2019 suspect. 5. Mycoplasma serology positive. 6. Obesity, probable obstructive sleep apnea-hypopnea syndrome. 7. Hypokalemia. 8. Fever/febrile illness. 9. Asthma. 10. Leukopenia, may be related to mycoplasma, typically its a hemolysis type of reaction Plan . I agree with Dr. Stephen, hold discharge for now SARS cov 2 virus testing pending Continue antibiotics repeat lab CARRINGTON LOBATO MD Jun 13, 2019 09:22
[2019-06-13] MEDS: AZITHROMYCIN 250 MG TABLET. PO SCH (09:29)
[2019-06-13] MEDS: POTASSIUM CHLORIDE 20 MEQ TABLET.ER. PO SCH (09:30)
[2019-06-13 11:00] VITALS: BP 167/82
--- NOTE | 2019-06-13 11:11 | PDOC ---
Infectious Disease Note Subjective Subjective Better No F/diarrhea No RLQ abd pain Vital Sign Vital Signs Vital Signs Date Time Temp Pulse Resp B/P (MAP) Pulse Ox O2 Delivery O2 Flow Rate FiO2 06/13/19 08:00 Room Air 06/13/19 07:46 97 06/13/19 07:00 98.4 80 20 145/80 (101) 98.4 Physical Exam PHYSICAL EXAM GENERAL: The patient is sitting on side of bed, alert, no apparent distress.Looks well HEENT: Pupils equally round and reactive. Oropharynx pink and moist. NECK: Supple. LUNGS: Clear to auscultation. HEART: S1, S2. ABDOMEN: Obese, soft, nontender with bowel sounds present. RLQ - NT on palp, No Warmth/erythema/wound or edema. In waistband area EXTREMITIES: No gross edema or cyanosis. SKIN: Warm to touch without signs of rash. NEUROLOGIC: Alert and answering questions appropriately Labs Lab Laboratory Tests Test 06/12/19 23:20 06/13/19 06:17 Vancomycin Level Trough 3.0 mcg/mL (10.0-20.0) Vancomycin Last Dose Date 06/12/19 Vancomycin Last Dose Time 1030 White Blood Count 3.0 x10^3/uL (4.0-11.0) Red Blood Count 3.77 x10^6/uL (3.50-5.40) Hemoglobin 10.4 g/dL (12.0-15.5) Hematocrit 31.3 % (36.0-47.0) Mean Corpuscular Volume 83 fL (79-100) Mean Corpuscular Hemoglobin 28 pg (25-35) Mean Corpuscular Hemoglobin Concent 33 g/dL (31-37) Red Cell Distribution Width 15.3 % (11.5-14.5) Platelet Count 228 x10^3/uL (140-400) Neutrophils (%) (Auto) 60 % (31-73) Lymphocytes (%) (Auto) 29 % (24-48) Monocytes (%) (Auto) 9 % (0-9) Eosinophils (%) (Auto) 0 % (0-3) Basophils (%) (Auto) 1 % (0-3) Neutrophils # (Auto) 1.8 x10^3/uL (1.8-7.7) Lymphocytes # (Auto) 0.9 x10^3/uL (1.0-4.8) Monocytes # (Auto) 0.3 x10^3/uL (0.0-1.1) Eosinophils # (Auto) 0.0 x10^3/uL (0.0-0.7) Basophils # (Auto) 0.0 x10^3/uL (0.0-0.2) Creatinine 0.5 mg/dL (0.6-1.0) Estimated GFR (Cockcroft-Gault) 133.4 Micro Microbiology 06/10/19 Blood Culture - Preliminary, Resulted NO GROWTH AFTER 1 DAY Objective Assessment Pneumonia Positive mycoplasma 06/09 Fever - better Leukopenia- ? Med vs ID Morbid obesity Hypertension Plan Plan of Care D/c vanc D/c Zosyn Cont Azithromycin (on atypical since 06/09) Monitor lab values/temp f/u cultures COVID-19 pending Droplet precautions CORTEZ MENDEZ MD Jun 13, 2019 11:11
[2019-06-13 15:00] VITALS: BP 143/78
[2019-06-13 19:50] VITALS: BP 127/73
[2019-06-13 22:57] VITALS: BP 129/78
--- NOTE | 2019-06-13 23:32 | DS ---
DATE OF DISCHARGE: 06/13/2019 ADMISSION DIAGNOSIS: Pneumonia and suspicion for COVID-19. DISCHARGE DIAGNOSIS: Resolving atypical pneumonia, suspect mycoplasma pneumonia. HOSPITAL COURSE: The patient is a pleasant 43-year-old female presented with pneumonia and shortness of breath. She was admitted. We started IV antibiotics and checked her for COVID-19. PHYSICAL EXAMINATION: GENERAL: Today, I saw and examined the patient. She was doing great. HEART: Tones were normal. LUNGS: Clear. ABDOMEN: Soft. EXTREMITIES: No edema. We plan to discharge with close outpatient followup on a [facility]. DISPOSITION: Home. ACTIVITY: As tolerated. DIET: Low sodium. MEDICATIONS: Please see the MRAD. TOTAL TIME: 32 minutes. NIKI DANG DO DR: RUSTY/vamsi JOB#: [id number] / [id number]
[2019-06-14] MEDS: IPRATRPIUM/ALBUTEROL 0.5/2.5MG 3 ML NEBU. NEB SCH ×4 (02:20→11:55)
[2019-06-14 03:06] VITALS: BP 136/77
[2019-06-14 05:22] LABS: CREATININE 0.5 mg/dL (0.6-1.0); GFR 133.4
[2019-06-14 05:29] LABS: BASO % 1 % (0-3); EOS % 0 % (0-3); HEMATOCRIT 32.5 % (36.0-47.0); HEMOGLOBIN 10.7 g/dL (12.0-15.5); LYMPH # 1.1 x10^3/uL (1.0-4.8); LYMPH % 31 % (24-48); MEAN CORPUSCULAR HEMOGLOBIN 27 pg (25-35); MEAN CORPUSCULAR HGB CONC 33 g/dL (31-37); MEAN CORPUSCULAR VOLUME 82 fL (79-100); MONO # 0.3 x10^3/uL (0.0-1.1); MONO % 9 % (0-9); NEUT # 2.1 x10^3/uL (1.8-7.7); NEUT % 59 % (31-73); PLATELET COUNT 298 x10^3/uL (140-400); RED BLOOD COUNT 3.94 x10^6/uL (3.50-5.40); WHITE BLOOD COUNT 3.6 x10^3/uL (4.0-11.0)
[2019-06-14] MEDS: HEPARIN for SUB-Q USE 5,000 UNIT/ML VIAL. SQ SCH ×2 (06:00→13:14)
[2019-06-14 07:00] VITALS: BP 133/70
[2019-06-14] MEDS: BENZONATATE 100 MG CAPSULE. PO SCH ×2 (08:49→14:22)
[2019-06-14] MEDS: LACTOBACILLUS RHAMNOSUS GG 1 CAPSULE. PO SCH (08:49)
[2019-06-14] MEDS: FAMOTIDINE 20 MG TABLET. PO SCH (08:49)
[2019-06-14] MEDS: AZITHROMYCIN 250 MG TABLET. PO SCH (08:49)
[2019-06-14] MEDS: POTASSIUM CHLORIDE 20 MEQ TABLET.ER. PO SCH (08:52)
--- NOTE | 2019-06-14 08:56 | PDOC ---
PULMONARY PROGRESS NOTES Subjective Patient feels better, and no increase in shortness of air Vitals Vital Signs Date Time Temp Pulse Resp B/P (MAP) Pulse Ox O2 Delivery O2 Flow Rate FiO2 06/14/19 07:00 98.7 85 16 133/70 (91) 94 Room Air 98.7 ROS: No Nausea, No Chest Pain, No Abdominal Pain, No Increase Cough General: Alert Lungs: Crackles Cardiovascular: S1, S2 Abdomen: Soft Neuro Exam: Alert Extremities: No Edema Skin: Warm Labs Laboratory Tests Test 06/12/19 23:20 06/13/19 06:17 06/14/19 03:25 Vancomycin Level Trough 3.0 mcg/mL (10.0-20.0) Vancomycin Last Dose Date 06/12/19 Vancomycin Last Dose Time 1030 White Blood Count 3.0 x10^3/uL (4.0-11.0) 3.6 x10^3/uL (4.0-11.0) Red Blood Count 3.77 x10^6/uL (3.50-5.40) 3.94 x10^6/uL (3.50-5.40) Hemoglobin 10.4 g/dL (12.0-15.5) 10.7 g/dL (12.0-15.5) Hematocrit 31.3 % (36.0-47.0) 32.5 % (36.0-47.0) Mean Corpuscular Volume 83 fL (79-100) 82 fL (79-100) Mean Corpuscular Hemoglobin 28 pg (25-35) 27 pg (25-35) Mean Corpuscular Hemoglobin Concent 33 g/dL (31-37) 33 g/dL (31-37) Red Cell Distribution Width 15.3 % (11.5-14.5) 15.0 % (11.5-14.5) Platelet Count 228 x10^3/uL (140-400) 298 x10^3/uL (140-400) Neutrophils (%) (Auto) 60 % (31-73) 59 % (31-73) Lymphocytes (%) (Auto) 29 % (24-48) 31 % (24-48) Monocytes (%) (Auto) 9 % (0-9) 9 % (0-9) Eosinophils (%) (Auto) 0 % (0-3) 0 % (0-3) Basophils (%) (Auto) 1 % (0-3) 1 % (0-3) Neutrophils # (Auto) 1.8 x10^3/uL (1.8-7.7) 2.1 x10^3/uL (1.8-7.7) Lymphocytes # (Auto) 0.9 x10^3/uL (1.0-4.8) 1.1 x10^3/uL (1.0-4.8) Monocytes # (Auto) 0.3 x10^3/uL (0.0-1.1) 0.3 x10^3/uL (0.0-1.1) Eosinophils # (Auto) 0.0 x10^3/uL (0.0-0.7) 0.0 x10^3/uL (0.0-0.7) Basophils # (Auto) 0.0 x10^3/uL (0.0-0.2) 0.0 x10^3/uL (0.0-0.2) Creatinine 0.5 mg/dL (0.6-1.0) 0.5 mg/dL (0.6-1.0) Estimated GFR (Cockcroft-Gault) 133.4 133.4 Laboratory Tests Test 06/14/19 03:25 White Blood Count 3.6 x10^3/uL (4.0-11.0) Red Blood Count 3.94 x10^6/uL (3.50-5.40) Hemoglobin 10.7 g/dL (12.0-15.5) Hematocrit 32.5 % (36.0-47.0) Mean Corpuscular Volume 82 fL (79-100) Mean Corpuscular Hemoglobin 27 pg (25-35) Mean Corpuscular Hemoglobin Concent 33 g/dL (31-37) Red Cell Distribution Width 15.0 % (11.5-14.5) Platelet Count 298 x10^3/uL (140-400) Neutrophils (%) (Auto) 59 % (31-73) Lymphocytes (%) (Auto) 31 % (24-48) Monocytes (%) (Auto) 9 % (0-9) Eosinophils (%) (Auto) 0 % (0-3) Basophils (%) (Auto) 1 % (0-3) Neutrophils # (Auto) 2.1 x10^3/uL (1.8-7.7) Lymphocytes # (Auto) 1.1 x10^3/uL (1.0-4.8) Monocytes # (Auto) 0.3 x10^3/uL (0.0-1.1) Eosinophils # (Auto) 0.0 x10^3/uL (0.0-0.7) Basophils # (Auto) 0.0 x10^3/uL (0.0-0.2) Creatinine 0.5 mg/dL (0.6-1.0) Estimated GFR (Cockcroft-Gault) 133.4 Medications Active Scripts Medications Dose Route/Sig Max Daily Dose Days Date Category Maalox Advanced Suspension (Mag Hydrox/Aluminum Hyd/Simeth) 355 Ml Oral.susp 355 Ml PO Q8HRS PRN 11/07/18 Rx Zofran (Ondansetron Hcl) 4 Mg Tablet 1 Tab PO Q6HRS 11/07/18 Rx Pepcid (Famotidine) 20 Mg Tablet 20 Mg PO BID 11/07/18 Rx Naprosyn (Naproxen) 500 Mg Tablet 500 Mg PO BID 09/16/18 Rx Ventolin Hfa Inhaler (Albuterol Sulfate) 18 Gm Hfa.aer.ad 2 Puff INH Q4HRS 06/26/18 Rx Tessalon Perle (Benzonatate) 100 Mg Capsule 1 Cap PO TID 06/26/18 Rx Prednisone 50 Mg Tablet 1 Tab PO DAILY 06/26/18 Rx No Known Medications Prior To Admisstion (Info) Each 1 Each 06/24/15 Reported Impression . 1. Acute respiratory failure due to pneumonia and asthma. 2. Abnormal CT of the chest. 3. Pneumonia. 4. Coronavirus disease 2019 suspect. 5. Mycoplasma serology positive. 6. Obesity, probable obstructive sleep apnea-hypopnea syndrome. 7. Hypokalemia. 8. Fever/febrile illness. 9. Asthma. 10. Leukopenia, may be related to mycoplasma, typically its a hemolysis type of reaction Plan . I agree with Dr. Stephen, hold discharge for now SARS cov 2 virus testing pending Continue antibiotics repeat lab CARRINGTON LOBATO MD Jun 14, 2019 08:56
--- NOTE | 2019-06-14 10:28 | PDOC ---
Infectious Disease Note Subjective Subjective Better No F/diarrhea No RLQ abd pain Breathing well ROS ROS o/w neg Vital Sign Vital Signs Vital Signs Date Time Temp Pulse Resp B/P (MAP) Pulse Ox O2 Delivery O2 Flow Rate FiO2 06/14/19 08:23 94 Room Air 06/14/19 07:00 98.7 85 16 133/70 (91) 98.7 Physical Exam PHYSICAL EXAM GENERAL: The patient is sitting on side of bed, alert, no apparent distress.Looks well HEENT: Pupils equally round and reactive. Oropharynx pink and moist. NECK: Supple. LUNGS: Clear to auscultation. HEART: S1, S2. ABDOMEN: Obese, soft, nontender with bowel sounds present. RLQ - NT on palp, No Warmth/erythema/wound or edema. In waistband area EXTREMITIES: No gross edema or cyanosis. SKIN: Warm to touch without signs of rash. NEUROLOGIC: Alert and answering questions appropriately Labs Lab Laboratory Tests Test 06/14/19 03:25 White Blood Count 3.6 x10^3/uL (4.0-11.0) Red Blood Count 3.94 x10^6/uL (3.50-5.40) Hemoglobin 10.7 g/dL (12.0-15.5) Hematocrit 32.5 % (36.0-47.0) Mean Corpuscular Volume 82 fL (79-100) Mean Corpuscular Hemoglobin 27 pg (25-35) Mean Corpuscular Hemoglobin Concent 33 g/dL (31-37) Red Cell Distribution Width 15.0 % (11.5-14.5) Platelet Count 298 x10^3/uL (140-400) Neutrophils (%) (Auto) 59 % (31-73) Lymphocytes (%) (Auto) 31 % (24-48) Monocytes (%) (Auto) 9 % (0-9) Eosinophils (%) (Auto) 0 % (0-3) Basophils (%) (Auto) 1 % (0-3) Neutrophils # (Auto) 2.1 x10^3/uL (1.8-7.7) Lymphocytes # (Auto) 1.1 x10^3/uL (1.0-4.8) Monocytes # (Auto) 0.3 x10^3/uL (0.0-1.1) Eosinophils # (Auto) 0.0 x10^3/uL (0.0-0.7) Basophils # (Auto) 0.0 x10^3/uL (0.0-0.2) Creatinine 0.5 mg/dL (0.6-1.0) Estimated GFR (Cockcroft-Gault) 133.4 Micro Microbiology 06/10/19 Blood Culture - Preliminary, Resulted NO GROWTH AFTER 1 DAY Objective Assessment Pneumonia Positive mycoplasma 06/09 Fever - better Leukopenia- better Morbid obesity Hypertension Plan Plan of Care D/c vanc D/c Zosyn Discont Azithromycin (on atypical since 06/09) after today Ok to d/c from ID standpoint - no abx D/w nursing CORTEZ MENDEZ MD Jun 14, 2019 10:28
[2019-06-14 11:00] VITALS: BP 162/90
--- NOTE | 2019-06-14 12:04 | PDOC ---
PULMONARY PROGRESS NOTES Subjective Patient feels better, and no increase in shortness of air Vitals Vital Signs Date Time Temp Pulse Resp B/P (MAP) Pulse Ox O2 Delivery O2 Flow Rate FiO2 06/14/19 11:00 99.6 103 16 162/90 (114) 96 Room Air 99.6 ROS: No Nausea, No Chest Pain, No Abdominal Pain, No Increase Cough General: Alert, No acute distress Lungs: Clear Cardiovascular: S1, S2 Abdomen: Soft Neuro Exam: Alert Extremities: No Edema Skin: Warm Labs Laboratory Tests Test 06/12/19 23:20 06/13/19 06:17 06/14/19 03:25 Vancomycin Level Trough 3.0 mcg/mL (10.0-20.0) Vancomycin Last Dose Date 06/12/19 Vancomycin Last Dose Time 1030 White Blood Count 3.0 x10^3/uL (4.0-11.0) 3.6 x10^3/uL (4.0-11.0) Red Blood Count 3.77 x10^6/uL (3.50-5.40) 3.94 x10^6/uL (3.50-5.40) Hemoglobin 10.4 g/dL (12.0-15.5) 10.7 g/dL (12.0-15.5) Hematocrit 31.3 % (36.0-47.0) 32.5 % (36.0-47.0) Mean Corpuscular Volume 83 fL (79-100) 82 fL (79-100) Mean Corpuscular Hemoglobin 28 pg (25-35) 27 pg (25-35) Mean Corpuscular Hemoglobin Concent 33 g/dL (31-37) 33 g/dL (31-37) Red Cell Distribution Width 15.3 % (11.5-14.5) 15.0 % (11.5-14.5) Platelet Count 228 x10^3/uL (140-400) 298 x10^3/uL (140-400) Neutrophils (%) (Auto) 60 % (31-73) 59 % (31-73) Lymphocytes (%) (Auto) 29 % (24-48) 31 % (24-48) Monocytes (%) (Auto) 9 % (0-9) 9 % (0-9) Eosinophils (%) (Auto) 0 % (0-3) 0 % (0-3) Basophils (%) (Auto) 1 % (0-3) 1 % (0-3) Neutrophils # (Auto) 1.8 x10^3/uL (1.8-7.7) 2.1 x10^3/uL (1.8-7.7) Lymphocytes # (Auto) 0.9 x10^3/uL (1.0-4.8) 1.1 x10^3/uL (1.0-4.8) Monocytes # (Auto) 0.3 x10^3/uL (0.0-1.1) 0.3 x10^3/uL (0.0-1.1) Eosinophils # (Auto) 0.0 x10^3/uL (0.0-0.7) 0.0 x10^3/uL (0.0-0.7) Basophils # (Auto) 0.0 x10^3/uL (0.0-0.2) 0.0 x10^3/uL (0.0-0.2) Creatinine 0.5 mg/dL (0.6-1.0) 0.5 mg/dL (0.6-1.0) Estimated GFR (Cockcroft-Gault) 133.4 133.4 Laboratory Tests Test 06/14/19 03:25 White Blood Count 3.6 x10^3/uL (4.0-11.0) Red Blood Count 3.94 x10^6/uL (3.50-5.40) Hemoglobin 10.7 g/dL (12.0-15.5) Hematocrit 32.5 % (36.0-47.0) Mean Corpuscular Volume 82 fL (79-100) Mean Corpuscular Hemoglobin 27 pg (25-35) Mean Corpuscular Hemoglobin Concent 33 g/dL (31-37) Red Cell Distribution Width 15.0 % (11.5-14.5) Platelet Count 298 x10^3/uL (140-400) Neutrophils (%) (Auto) 59 % (31-73) Lymphocytes (%) (Auto) 31 % (24-48) Monocytes (%) (Auto) 9 % (0-9) Eosinophils (%) (Auto) 0 % (0-3) Basophils (%) (Auto) 1 % (0-3) Neutrophils # (Auto) 2.1 x10^3/uL (1.8-7.7) Lymphocytes # (Auto) 1.1 x10^3/uL (1.0-4.8) Monocytes # (Auto) 0.3 x10^3/uL (0.0-1.1) Eosinophils # (Auto) 0.0 x10^3/uL (0.0-0.7) Basophils # (Auto) 0.0 x10^3/uL (0.0-0.2) Creatinine 0.5 mg/dL (0.6-1.0) Estimated GFR (Cockcroft-Gault) 133.4 Medications Active Scripts Medications Dose Route/Sig Max Daily Dose Days Date Category Maalox Advanced Suspension (Mag Hydrox/Aluminum Hyd/Simeth) 355 Ml Oral.susp 355 Ml PO Q8HRS PRN 11/07/18 Rx Zofran (Ondansetron Hcl) 4 Mg Tablet 1 Tab PO Q6HRS 11/07/18 Rx Pepcid (Famotidine) 20 Mg Tablet 20 Mg PO BID 11/07/18 Rx Naprosyn (Naproxen) 500 Mg Tablet 500 Mg PO BID 09/16/18 Rx Ventolin Hfa Inhaler (Albuterol Sulfate) 18 Gm Hfa.aer.ad 2 Puff INH Q4HRS 06/26/18 Rx Tessalon Perle (Benzonatate) 100 Mg Capsule 1 Cap PO TID 06/26/18 Rx Prednisone 50 Mg Tablet 1 Tab PO DAILY 06/26/18 Rx No Known Medications Prior To Admisstion (Info) Each 1 Each 06/24/15 Reported Impression . 1. Acute respiratory failure due to pneumonia and asthma. symptoms stable 2. Abnormal CT of the chest. 3. Pneumonia. 4. Coronavirus disease 2019 suspect. 5. Mycoplasma serology positive. 6. Obesity, probable obstructive sleep apnea-hypopnea syndrome. 7. Hypokalemia. 8. Fever/febrile illness. 9. Asthma. 10. Leukopenia, may be related to mycoplasma, improved Plan . d/w Dr. Stephen, /RN SARS cov 2 virus testing pending Continue antibiotics on RA, no SOA ok with home on PO Zithromax self quarentine at home DAMON RODGERS MD Jun 14, 2019 12:04
--- NOTE | 2019-06-14 14:08 | NUR ---
SPOKE TO THE PATIENTS DAUGHTER DALLAS AT [phone] OVER THE PHONE TO TRANSLATE FOR THE PATIENT REGARDING DISCHARGE INSTRUCTIONS. INFORMED TO CALL PRIMARY CARE DR AND INFORM THE PRIMARY CARE DR OF WHY THE PT WAS IN THE HOSPITAL. INFORMED THE FAMILY THAT THE PT IS NOT TO BE GIVEN NSAIDS AND GAVE EXAMPLES. PT RECEIVED ALL OF THE REQUIRED ANTIBIOTICS AND DID NOT NEED A PRESCRIPTION TO BE DISCHARGE.
== END 2019-06-14 14:35 | disposition home or self-care (01) | DRG 193 ==
LOC: ER 13:54 → 1 WEST ICU 17:09 → 2 SOUTH 06-12 16:03
PROVIDERS: ADMIT Family Medicine; ATTEND Family Medicine
DX: J15.7 Pneumonia due to Mycoplasma pneumoniae (principal); J96.01 Acute respiratory failure with hypoxia; Z68.44 Body mass index [BMI] 60.0-69.9, adult; B34.9 Viral infection, unspecified; E66.01 Morbid (severe) obesity due to excess calories; E87.6 Hypokalemia; G47.33 Obstructive sleep apnea (adult) (pediatric); I10 Essential (primary) hypertension; J45.909 Unspecified asthma, uncomplicated; Z78.9 Other specified health status; Z82.49 Family history of ischemic heart disease and other diseases of the circulatory system; K21.9 Gastro-esophageal reflux disease without esophagitis; M19.90 Unspecified osteoarthritis, unspecified site; Z20.828 Contact with and (suspected) exposure to other viral communicable diseases
CPT/HCPCS: 36415; 71045; 71260; 80053; 80202; 82565; 83605; 84145; 85025; 85610; 85730; 86738; 87040; 87086; 87449; 87635; 87804; 94640; 94760; 94799; J0456; J0696; J1644; J2405; J2543; J3370; J7030; J7040; Q9967; G0378; U0002

== ENCOUNTER 2019-07-18 18:49 | Emergency (ER) | payer BC ==
[~2019-07-18] VITALS: Ht 144.8 cm; Wt 110.0 kg
--- NOTE | 2019-07-18 19:38 | PHYS DOC ---
Past Medical History Past Medical History: Asthma, GERD Additional Past Medical Histor: COVID 19 Past Surgical History: , Other Additional Past Surgical Histo: Pt. poor historian, reports having gallbladder out, unsure of appendix Smoking Status: Never Smoker Alcohol Use: None Drug Use: None General Adult EDM: Chief Complaint: OTHER COMPLAINTS HPI: HPI: Patient is a 43 year old female who presents with COVID 19 positive June 22. She states that she is having worsening shortness of breath and upper back pain. Rates her pain at a 8 out of 10. Patient states she has been taking Advil or naproxen at home for the help her pain. She states she has not taken any since this morning. Patient denies chest pain, abdominal pain, nausea, vomiting, diarrhea, fever, chills, syncope, dizziness, headache, vision changes, numbness or tingling, focal weakness. Patient states she does have a sore throat. Patient states that her primary care doctor said that they had to wait until she had a negative COVID test before she could have a chest x-ray. Patient is here today to get a chest x-ray. Patient does have a inhaler at home but she states she has not been using it. Patient has a history of asthma and obesity. Review of Systems: Review of Systems: HENT: Denies nasal congestion.+ sore throat. [] Respiratory: cough or shortness of breath. [] Musculoskeletal: Upper back pain or joint pain. [] Heart Score: HEART Score for Chest Pain: HEART Score for Chest Pain Response (Comments) Value History Slighlty/Non-Suspicious 0 ECG Normal 0 Age >45 - < 65 1 Risk Factors 1 or 2 Risk Factors 1 Troponin < Normal Limit 0 Total 2 Risk Factors: Risk Factors: DM, Current or recent (<one month) smoker, HTN, HLP, family history of CAD, obesity. Risk Scores: Score 0 - 3: 2.5% MACE over next 6 weeks - Discharge Home Score 4 - 6: 20.3% MACE over next 6 weeks - Admit for Clinical Observation Score 7 - 10: 72.7% MACE over next 6 weeks - Early Invasive Strategies Allergies: Allergies: Allergies Coded Allergies Type Severity Reaction Last Updated Verified No Known Drug Allergies 06/24/15 No Physical Exam: PE: Constitutional: Well developed, well nourished, no acute distress, non-toxic appearance. [] HENT: Normocephalic, atraumatic, bilateral external ears normal, oropharynx moist, no oral exudates, nose normal. Bilateral tonsils are reddened and 2+. [] Eyes: PERRLA, EOMI, conjunctiva normal, no discharge. [] Neck: Normal range of motion, no tenderness, supple, no stridor. [] Cardiovascular:Heart rate regular rhythm, no murmur [] Lungs & Thorax: Bilateral breath sounds clear to auscultation [] Abdomen: Bowel sounds normal, soft, no tenderness, no masses, no pulsatile masses. [] Skin: Warm, dry, no erythema, no rash. [] Back: No tenderness, no CVA tenderness. [] Extremities: No tenderness, no cyanosis, no clubbing, ROM intact, no edema. [] Neurologic: Alert and oriented X 3, normal motor function, normal sensory function, no focal deficits noted. [] Psychologic: Affect normal, judgement normal, mood normal. [] Current Patient Data: Vital Signs: Vital Signs Date Time Temp Pulse Resp B/P (MAP) Pulse Ox O2 Delivery O2 Flow Rate FiO2 07/18/19 19:11 98.8 99 22 161/87 (111 100 Room Air 98.8 EKG: EK and read by Dr Guzman. Sinus Rhythm and no STEMI[] Radiology/Procedures: Radiology/Procedures: [] Impression: [facility] [address] [address] IMAGING REPORT Signed PATIENT: MIKE BELTRAN ACCOUNT: [id number] : 1975 LOCATION: ER AGE: 43 SEX: F EXAM STATUS: REG ER ORD. PHYSICIAN: MIKA LAMAS APRN REASON: COVID +, SOA, CHEST TIGHTNESS PROCEDURE: PORTABLE CHEST 1V Exam: Chest one view INDICATION: Covid positive, short of air, chest tightness TECHNIQUE: Frontal view of the chest Comparisons: 06/10/2019 FINDINGS: The cardiomediastinal silhouette and pulmonary vessels are within normal limits. Subtle bibasilar airspace disease which has improved when compared to the prior study. No pleural effusion. IMPRESSION: Improved aeration at the lung bases with residual strandy airspace disease particularly at the right lung base. Electronically signed by: Lindsay Nunez MD (07/18/2019 8:46 PM) [id number] DICTATED and SIGNED BY: LINDSAY NUNEZ MD DATE: 07/18/192045 Course & Med Decision Making: Course & Med Decision Making Pertinent Labs and Imaging studies reviewed. (See chart for details) Alert and oriented. Speaks in full clear sentences. Lungs are clear to auscultation all lobes. Ambulatory with a steady gait. Skin pink warm and dry. Vital signs within normal limits. Afebrile. No extremity swelling. Bilate ral tonsils are 2+ swollen with redness. Uvula midline. Patient states she is eating and drinking appropriately. June 10, 2019 patient was diagnosed with suspected covid and pneumonia and placed on Azithromycin. I have spoken to Dr. Guzman about this patient and the care plan. He states to give her hydrocodone to help with her pain. She is to follow-up with her primary care physician. COVID-19 CRITERIA: The patient was evaluated during the global COVID-19 pandemic, and that diagnosis was suspected/considered upon their initial presentation. Their evaluation, treatment and testing was consistent with current guidelines for patients who present with complaints or symptoms that may be related to COVID-19. [] Ellis Disclaimer: Ellis Disclaimer: This electronic medical record was generated, in whole or in part, using a voice recognition dictation system. COVID-19 Patient Risks: Age 65 or older: No Sign of co-morbidity: Yes Exp to person + for COVID: No Exp to PUI: No Travel from affected area: No Lower respiratory symptoms: Yes Fever: No Other: Yes Comments: Patient is COVID + PPE Use: Full PPE with N95 mask or PAPR: Yes Departure Departure Impression: Primary Impression: Suspected 2019 novel coronavirus infection Additional Impression: Pneumonia Qualified Codes: J18.9 - Pneumonia, unspecified organism Disposition: HOME, SELF-CARE Condition: STABLE Referrals: UNKNOWN PCP NAME (PCP) Patient Instructions: Pneumonia, Adult Additional Instructions: Continue to quarantine away from others until you have no more symptoms. Take medications as prescribed and with food. Follow-up with your primary care physician. Use your inhaler when you are short of breath. Drink plenty of fluids. Take Tylenol for pain or fever. Scripts Albuterol Sulfate (PROAIR HFA INHALER) 8.5 Gm Hfa.aer.ad 1 PUFF INH PRN Q6HRS PRN for SHORTNESS OF BREATH, #1 INHALER 0 Refills Prov: MIKA LAMAS APRN 07/18/19 Hydrocodone/Apap 5-325 (NORCO 5-325 TABLET) 1 Each Tablet 1 TAB PO PRN Q6HRS PRN for PAIN, #10 TAB 0 Refills Prov: MIKA LAMAS RPG PROGRAMMER 07/18/19 MIKA LAMAS APRN Jul 18, 2019 19:38
[2019-07-18 20:03] LABS: BASO # 0.1 x10^3/uL (0.0-0.2); BASO % 1 % (0-3); EOS % 0 % (0-3); HEMATOCRIT 34.5 % (36.0-47.0); HEMOGLOBIN 11.3 g/dL (12.0-15.5); LYMPH # 1.8 x10^3/uL (1.0-4.8); LYMPH % 26 % (24-48); MEAN CORPUSCULAR HEMOGLOBIN 27 pg (25-35); MEAN CORPUSCULAR HGB CONC 33 g/dL (31-37); MEAN CORPUSCULAR VOLUME 81 fL (79-100); MONO # 0.6 x10^3/uL (0.0-1.1); MONO % 9 % (0-9); NEUT # 4.6 x10^3/uL (1.8-7.7); NEUT % 64 % (31-73); PLATELET COUNT 405 x10^3/uL (140-400); RED BLOOD COUNT 4.25 x10^6/uL (3.50-5.40); RED CELL DISTRIBUTION WIDTH 16.1 % (11.5-14.5); WHITE BLOOD COUNT 7.1 x10^3/uL (4.0-11.0)
[2019-07-18 20:10] LABS: CALCIUM 8.7 mg/dL (8.5-10.1); CREATININE 0.3 mg/dL (0.6-1.0); GFR 240.6; POTASSIUM 3.9 mmol/L (3.5-5.1)
[2019-07-18 20:22] LABS: ALBUMIN 3.8 g/dL (3.4-5.0); ALBUMIN/GLOBULIN RATIO 1.2 (1.0-1.7)
[2019-07-18 20:23] LABS: TOTAL BILIRUBIN 0.4 mg/dL (0.2-1.0)
[2019-07-18 20:33] LABS: PLT ESTIMATE INCREASED (ADEQUATE)
[2019-07-18 20:37] VITALS: BP 150/79
--- NOTE | 2019-07-18 20:50 | RAD ---
Exam: Chest one view INDICATION: Covid positive, short of air, chest tightness TECHNIQUE: Frontal view of the chest Comparisons: 06/10/2019 FINDINGS: The cardiomediastinal silhouette and pulmonary vessels are within normal limits. Subtle bibasilar airspace disease which has improved when compared to the prior study. No pleural effusion. IMPRESSION: Improved aeration at the lung bases with residual strandy airspace disease particularly at the right lung base. Electronically signed by: Lindsay Ziegler MD (07/18/2019 8:46 PM) [id number]
[2019-07-18] MEDS ORDERED: HYDR-3164 PO (20:54)
[2019-07-18] MEDS ORDERED: ALBU2.5V8 INH (20:54)
--- NOTE | 2019-07-19 05:26 | EKG ---
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
== END 2019-07-18 21:14 | disposition home or self-care (01) ==
LOC: ER 18:49
DX: J18.9 Pneumonia, unspecified organism (principal); R06.02 Shortness of breath; M54.6 Pain in thoracic spine; J45.909 Unspecified asthma, uncomplicated; K21.9 Gastro-esophageal reflux disease without esophagitis; Z98.890 Other specified postprocedural states; Z20.828 Contact with and (suspected) exposure to other viral communicable diseases
CPT/HCPCS: 36415; 71045; 80053; 83605; 84484; 85025; 87040; 87070; 87880; 93005; 99285